=== PATIENT | male | born 1940 | race Caucasian/White ===

== ENCOUNTER 2016-11-24 18:20 | Emergency (ER) | payer OTHER, BC ==
[2016-11-24 18:26] VITALS: BP 151/102; PULSE 70; TEMP 98; BMI 29.9
[2016-11-24] MEDS ORDERED: ONDANSETRON 4 MG/2 ML VIAL IVPUSH ONE (18:51)
--- NOTE | 2016-11-24 19:02 | PDOC ---
Attending Attestation - Resident Resident Name: Manjit Leija - ED Attending Attestation I have performed the following: I have examined & evaluated the patient, The case was reviewed & discussed with the resident, I agree w/resident's findings & plan, Exceptions are as noted - HPI HPI: 11/24/16 18:56 76 yo M h/o Parkinson's disease Presenting to the ER with a complaint of nausea He had recent change in his medications Since then he has noted nausea He told his Neurologist who told him to adjust his medication regimen He adjusted his medications per Neurologist recommendation but is still waking up in the morning nauseous Headaches when he wakes up No fevers No vomiting Pt currently does not feel nauseous - Physicial Exam PE: 11/24/16 19:02 No abdominal tenderness to palation No involuntary guarding No rebound tenderness - Medical Decision Making 11/24/16 19:02 Nausea, likely related to medications Will r/o Cardiac pathology, biliary pathology, pancreatitis Will do labs will do EKG Will give Zofran if QTc is permitting 11/24/16 21:03 Laboratory Tests 11/24/16 11/24/16 19:00 19:00 WBC 7.9 Hgb 15.3 Hct 45.4 Plt Count 196 BUN 29 H Creatinine 1.4 H Creatine Kinase 669 H D CK-MB (CK-2) 6.438 H Troponin I < 0.02 Total Amylase 92 Lipase 210 Anticipate discharge 11/24/16 22:23 Laboratory Tests 11/24/16 19:00 Creatine Kinase Index 1.0 CK-MB (CK-2) 6.438 H Troponin I < 0.02 Pt states he feels better He would like medications to go home with I will not discharge on Reglan Can give short course of zofran (pt QTc is 500ms) pt asked to follow up with PMD and Neurologist for medication adjustment Clinical impression: nausea
[2016-11-24] MEDS ORDERED: ONDANSETRON 4 MG/2 ML VIAL ONE (19:05)
[2016-11-24 19:09] LABS: BASOPHIL 0.5 % (0-2.0); EOSINOPHIL 1.1 % (0-4.5); MCH 29.9 pg (25.7-33.7); MCHC 33.8 g/dl (32.0-35.9); MEAN CELL VOLUME 88.5 fl (80-96); MEAN PLT VOLUME 8.1 fl (7.5-11.1); NEUTROPHILS 73.7 % (42.8-82.8); PLATELET COUNT 196 K/MM3 (134-434); RDW 13.5 % (11.9-15.9); WHITE BLOOD COUNT 7.9 K/mm3 (4.0-10.0)
--- NOTE | 2016-11-24 19:16 | PDOC ---
History of Present Illness - General Chief Complaint: Nausea Stated Complaint: ALLERGIC REACTION Time Seen by Provider: 11/24/16 18:29 - History of Present Illness Initial Comments: 11/24/16 19:10 76 yo male with h/o HTN, HLD, anxiety, Parkinsons Dz. who presents with nausea. Pt reports nausea since starting new parkinson medication for the past week. Per Neurology instructions he has decreased dosage of medication and crushed medication as advised. Despite recommendations he continues to experience nausea predominately in the morning upon awakening. Nausea is transient and decreases throughout the day. In addition, he complains of morning WILD, SOB, dizziness, weakness, GI upset. Denies fevers/chills, urinary complaints, or falls. Request anti emetic. Past History - Past Medical History Allergies/Adverse Reactions: Allergies Allergy/AdvReac Type Severity Reaction Status Date / Time No Known Allergies Allergy Verified 11/24/16 18:24 Home Medications: Ambulatory Orders Amlodipine Besylate [Norvasc -] 10 mg PO DAILY 09/05/13 Atenolol [Tenormin -] 50 mg PO DAILY 09/05/13 Atorvastatin Ca [Lipitor] 40 mg PO HS 09/05/13 Hydrochlorothiazide [Hctz -] 25 mg PO DAILY 09/05/13 Lorazepam 0.5 mg PO DAILY PRN 09/05/13 Ramipril 100 mg PO BID 09/05/13 Sertraline HCl [Zoloft] 100 mg PO BID 01/21/14 Aspirin [ASA -] 81 mg PO HS 01/27/14 Entacapone 200 mg PO BID 11/24/16 Ondansetron HCl [Zofran] 4 mg PO DAILY PRN #5 tablet 11/24/16 Anemia: No Asthma: No Cancer: No Cardiac Disorders: Yes (PACEMAKER) Dementia: Yes (PARKINSONS) HTN: Yes Psychiatric Problems: Yes (anxiety) - Surgical History Abdominal Surgery: No Appendectomy: No - Family Disease History Family Disease History: CA: Mother, Other: Father (htn) - Psycho/Social/Smoking Cessation Hx Anxiety: No Suicidal Ideation: No Smoking History: Never smoked Have you smoked in the past 12 months: No Hx Alcohol Use: No Drug/Substance Use Hx: No Substance Use Type: None Hx Substance Use Treatment: No Review of Systems - Review of Systems Comments:: 11/24/16 19:18 GENERAL/CONSTITUTIONAL: No fever or chills. No weakness. HEAD, EYES, EARS, NOSE AND THROAT: No change in vision. No ear pain or discharge. No sore throat. CARDIOVASCULAR: No chest pain or shortness of breath RESPIRATORY: No cough, wheezing, or hemoptysis. GASTROINTESTINAL: + nausea. No vomiting, diarrhea or constipation. GENITOURINARY: No dysuria, frequency, or change in urination. MUSCULOSKELETAL: No joint or muscle swelling or pain. No neck or back pain. SKIN: No rash NEUROLOGIC: + Tremor. No headache, vertigo, loss of consciousness, or change in strength/sensation. ENDOCRINE: No increased thirst. No abnormal weight change HEMATOLOGIC/LYMPHATIC: No anemia, easy bleeding, or history of blood clots. ALLERGIC/IMMUNOLOGIC: No hives or skin allergy. *Physical Exam - Vital Signs Last Vital Signs Temp Pulse Resp BP Pulse Ox 98 F 70 18 151/102 96 11/24/16 18:24 11/24/16 18:24 11/24/16 18:24 11/24/16 18:24 11/24/16 18:24 - Physical Exam Comments: 11/24/16 19:18 GENERAL: Awake, alert, and fully oriented, in no acute distress HEAD: No signs of trauma, normocephalic, atraumatic EYES: PERRLA, EOMI, sclera anicteric, conjunctiva clear ENT: Auricles normal inspection, hearing grossly normal, nares patent, oropharynx clear without exudates. Moist mucosa NECK: Normal ROM, supple, no lymphadenopathy, JVD, or masses LUNGS: No distress, speaks full sentences, clear to auscultation bilaterally HEART: Regular rate and rhythm, normal S1 and S2, no murmurs, rubs or gallops, peripheral pulses normal and equal bilaterally. ABDOMEN: Soft, nontender, normoactive bowel sounds. No guarding, no rebound. No masses EXTREMITIES: Normal inspection, Normal range of motion, no edema. No clubbing or cyanosis. NEUROLOGICAL: + Tremor BL UE. Cranial nerves II through XII grossly intact. Normal speech, normal gait, no focal sensorimotor deficits SKIN: Warm, Dry, normal turgor, no rashes or lesions noted. ED Treatment Course - LABORATORY CBC & Chemistry Diagram: 11/24/16 19:00 11/24/16 19:00 - Medications Given in the ED: ED Medications Discontinued Medications Generic Name Dose Route Start Last Admin Trade Name Freq PRN Reason Stop Dose Admin Ondansetron HCl 4 mg 11/24/16 18:51 11/24/16 19:06 Zofran Injection IVPUSH 11/24/16 18:52 4 mg ONCE ONE Administration Medical Decision Making - Medical Decision Making 11/24/16 19:20 76 yo male with h/o HLD, HTN, Anxiety, and Parkinson's Dz. Reports nasuea for past week since recent medication change. Provided hand off to Dr. Mcdonald ED course : EKG UA, CBC, CMP CXR *DC/Admit/Observation/Transfer Diagnosis at time of Disposition: Nausea - Discharge Dispostion Disposition: HOME Condition at time of disposition: Improved - Prescriptions Prescriptions: Ondansetron HCl [Zofran] 4 mg PO DAILY PRN #5 tablet PRN Reason: Nausea - Referrals Referrals: Nilsa Resendiz MD [Primary Care Provider] - - Patient Instructions Printed Discharge Instructions: DI for Nausea -- Adult Additional Instructions: Please return to the ER if you experience worsening symptoms including vomiting , bloody vomit, or blood in stools. Please follow up with your neurologist regarding your medication management for Parkinson's. Please follow up with your primary care provider to discuss your ER visit. - Attestations Physician Attestion: 11/27/16 15:30 I, Dr. Manjit Leija, attest that this document has been prepared under my direction and personally reviewed by me in its entirety. I further attest, that it accurately reflects all work, treatment, procedures and medical decision -making performed by me.
--- NOTE | 2016-11-24 19:51 | PDOC ---
*Physical Exam - Vital Signs Last Vital Signs Temp Pulse Resp BP Pulse Ox 98 F 70 18 151/102 96 11/24/16 18:24 11/24/16 18:24 11/24/16 18:24 11/24/16 18:24 11/24/16 18:24 - Physical Exam Comments: 11/24/16 19:59 General Appearance: Nourished. No Apparent Distress HEENT: No Pharyngeal Erythema, Tonsillar Exudate, Tonsillar Erythema Respiratory/Chest: Lungs Clear, Normal Breath Sounds. No Crackles, Rales, Rhonchi, Wheezing Cardiovascular: Regular Rhythm, Regular Rate. No Murmur, Gallop/S3, Gallop/S4 Gastrointestinal/Abdominal: Normal Bowel Sounds, Soft. No Guarding, Rebound, Tenderness Extremity: Normal Capillary Refill Integumentary: Normal Color, Dry, Warm Neurologic: Fully Oriented, Alert, Normal Mood/Affect, Normal Response ED Treatment Course - LABORATORY CBC & Chemistry Diagram: 11/24/16 19:00 11/24/16 19:00 - ADDITIONAL ORDERS Additional order review: 11/24/16 19:00 RBC 5.13 MCV 88.5 MCHC 33.8 RDW 13.5 MPV 8.1 Neutrophils % 73.7 Lymphocytes % 14.8 Monocytes % 9.9 Eosinophils % 1.1 Basophils % 0.5 - Medications Given in the ED: ED Medications Discontinued Medications Generic Name Dose Route Start Last Admin Trade Name Sylvesterq PRN Reason Stop Dose Admin Ondansetron HCl 4 mg 11/24/16 18:51 11/24/16 19:06 Zofran Injection IVPUSH 11/24/16 18:52 4 mg ONCE ONE Administration Progress Note - Progress Note Progress Note: Received sign out from Dr. Leija. Patient is a 76 year old male with a history of Parkinson's and Anxiety who presents with nausea. Patient had recently changed his Parkinson's medication and has been having issues with nausea throughout the last week. Patient is currently working with his neurologist to manage his medication. Work up has been negative thus far and labs are still pending. If labs result as normal, then the patient can be discharged home with neurology follow up. Medical Decision Making - Medical Decision Making 11/24/16 20:18 EKG compared to previous EKG from 01/28/16 and is unchanged. 11/24/16 22:19 Patient's lab results are normal. We discussed the results with the patient and feel comfortable discharging home and the patient is agreeable to the plan. *DC/Admit/Observation/Transfer Diagnosis at time of Disposition: Nausea - Discharge Dispostion Disposition: HOME Condition at time of disposition: Improved - Prescriptions Prescriptions: Ondansetron HCl [Zofran] 4 mg PO DAILY PRN #5 tablet PRN Reason: Nausea - Referrals Referrals: Nilsa Resendiz MD [Primary Care Provider] - - Patient Instructions Printed Discharge Instructions: DI for Nausea -- Adult Additional Instructions: Please return to the ER if you experience worsening symptoms including vomiting , bloody vomit, or blood in stools. Please follow up with your neurologist regarding your medication management for Parkinson's. Please follow up with your primary care provider to discuss your ER visit. - Attestations Physician Attestion: 11/24/16 22:19 I, Dr. Dustin Mcdonald, attest that this document has been prepared under my direction and personally reviewed by me in its entirety. I further attest, that it accurately reflects all work, treatment, procedures and medical decision -making performed by me.
[2016-11-24 19:52] LABS: ALBUMIN 4.2 g/dl (3.4-5.0); AMYLASE 92 U/L (25-115); ANION GAP 6 (8-16); BILIRUBIN,TOTAL 0.9 mg/dL (0.2-1.0); CALCIUM 9.6 mg/dL (8.5-10.1); CO2 30 mmol/L (21-32); CREATININE 1.4 mg/dL (0.7-1.3); GLUCOSE,RANDOM 87 mg/dL (74-106); SGOT/AST 48 U/L (15-37); SGPT/ALT 32 U/L (12-78)
[2016-11-24 19:55] LABS: ALK PHOS 78 U/L (45-117); TROPONIN I < 0.02 ng/ml (0.00-0.05)
--- NOTE | 2016-11-27 12:46 | EKG ---
Test Reason : Blood Pressure : / mmHG Vent. Rate : 060 BPM Atrial Rate : 060 BPM P-R Int : 312 ms QRS Dur : 164 ms QT Int : 500 ms P-R-T Axes : 000 -77 -19 degrees QTc Int : 500 ms Atrial-paced rhythm with prolonged AV conduction RIGHT BUNDLE BRANCH BLOCK LEFT ANTERIOR FASCICULAR BLOCK BIFASCICULAR BLOCK SEPTAL INFARCT , AGE UNDETERMINED ABNORMAL ECG WHEN COMPARED WITH ECG OF 27-JAN-2014 18:29, VENT. RATE HAS DECREASED BY 48 BPM Confirmed by KAELYN BROWN MD ([id number]) on 11/27/2016 12:46:23 PM Referred By: Confirmed By:KAELYN BROWN MD
== END 2016-11-24 22:31 | disposition home or self-care (01) ==
LOC: JER 18:20
PROC: 3E033GC Introduction of Other Therapeutic Substance into Peripheral Vein, Percutaneous Approach (ICD-10-PCS; principal; 2016-11-24)
DX: R11.0 Nausea (principal); I10 Essential (primary) hypertension; E78.5 Hyperlipidemia, unspecified; F41.9 Anxiety disorder, unspecified; G20 Parkinson's disease; Z95.0 Presence of cardiac pacemaker
CPT/HCPCS: 36415; 80053; 82150; 82550; 82553; 83690; 84484; 85025; 93005; 93010; 96374; 99282-25

== ENCOUNTER 2016-12-18 13:05 | Emergency (ER) | payer OTHER, BC ==
[2016-12-18 13:12] VITALS: BP 141/78; PULSE 68; TEMP 97.7; BMI 29.2
--- NOTE | 2016-12-18 13:28 | PDOC ---
History of Present Illness - General Chief Complaint: Urinary Problem Stated Complaint: CONSTIPATED UNABLE TO VOID Time Seen by Provider: 12/18/16 13:27 - History of Present Illness Initial Comments: 12/18/16 13:29 Mr. Gómez is a 76 yo male with a significant past medical history of parkinson' s who presents to the emergency department with constipation on and off for two weeks. He says that his last BM was 2 days ago and that he has had to strain. This AM he was not able to defecate and is now unable to urinate as well. Denies any pain. The patient denies chest pain, shortness of breath, headache and dizziness. Denies fever, chills, nausea, vomit, and diarrhea. Denies dysuria, frequency, urgency and hematuria. Allergies: NKDA Past surgical history: Lithotripsy and laser surgery 2x for prostate enlargement Social history: Denies PMD - Ann[place] Past History - Past Medical History Allergies/Adverse Reactions: Allergies Allergy/AdvReac Type Severity Reaction Status Date / Time No Known Allergies Allergy Verified 12/18/16 13:13 Home Medications: Ambulatory Orders Amlodipine Besylate [Norvasc -] 10 mg PO DAILY 09/05/13 Atenolol [Tenormin -] 50 mg PO DAILY 09/05/13 Atorvastatin Ca [Lipitor] 40 mg PO HS 09/05/13 Hydrochlorothiazide [Hctz -] 25 mg PO DAILY 09/05/13 Lorazepam 0.5 mg PO DAILY PRN 09/05/13 Ramipril 100 mg PO BID 09/05/13 Sertraline HCl [Zoloft] 100 mg PO BID 01/21/14 Aspirin [ASA -] 81 mg PO HS 01/27/14 Ondansetron HCl [Zofran] 4 mg PO DAILY PRN #5 tablet 11/24/16 Carbidopa/Levodopa 25/100 [Sinemet 25/100 -] 1 each PO TID 12/18/16 Polyethylene Glycol 3350 [Miralax (For Daily Use) -] 17 gm PO DAILY #1 bottle Anemia: No Asthma: No Cancer: No Cardiac Disorders: Yes (PACEMAKER) Dementia: Yes (PARKINSONS) HTN: Yes Hypercholesterolemia: Yes Kidney Stones: Yes Psychiatric Problems: Yes (anxiety) Other medical history: PROSTATE - Surgical History Abdominal Surgery: No Appendectomy: No Cardiac Surgery: Yes (PACEMAKER) - Family Disease History Family Disease History: CA: Mother, Other: Father (htn) - Psycho/Social/Smoking Cessation Hx Anxiety: No Suicidal Ideation: No Smoking History: Never smoked Have you smoked in the past 12 months: No Information on smoking cessation initiated: No Hx Alcohol Use: No Drug/Substance Use Hx: No Substance Use Type: None Hx Substance Use Treatment: No Review of Systems - Review of Systems Comments:: 12/18/16 13:30 GENERAL/CONSTITUTIONAL: No fever or chills. No weakness. HEAD, EYES, EARS, NOSE AND THROAT: No change in vision. No ear pain or discharge. No sore throat. CARDIOVASCULAR: No chest pain or shortness of breath RESPIRATORY: No cough, wheezing, or hemoptysis. GASTROINTESTINAL: +Recent constipation. No nausea, vomiting, or diarrhea. GENITOURINARY: +As of this AM cannot urinate. Does not report feeling full or uncomfortable, however. No dysuria. MUSCULOSKELETAL: No joint or muscle swelling or pain. No neck or back pain. SKIN: No rash NEUROLOGIC: No headache, vertigo, loss of consciousness, or change in strength/ sensation. ENDOCRINE: No increased thirst. No abnormal weight change HEMATOLOGIC/LYMPHATIC: No anemia, easy bleeding, or history of blood clots. ALLERGIC/IMMUNOLOGIC: No hives or skin allergy. *Physical Exam - Vital Signs Last Vital Signs Temp Pulse Resp BP Pulse Ox 97.7 F 68 18 141/78 97 12/18/16 13:08 12/18/16 13:08 12/18/16 13:08 12/18/16 13:08 12/18/16 13:08 - Physical Exam Comments: 12/18/16 13:31 GENERAL: Awake, alert, and fully oriented, in no acute distress HEAD: No signs of trauma, normocephalic, atraumatic EYES: PERRLA, EOMI, sclera anicteric, conjunctiva clear ENT: Auricles normal inspection, hearing grossly normal, nares patent, oropharynx clear without exudates. Moist mucosa NECK: Normal ROM, supple, no lymphadenopathy, JVD, or masses LUNGS: No distress, speaks full sentences, clear to auscultation bilaterally HEART: Regular rate and rhythm, normal S1 and S2, no murmurs, rubs or gallops, peripheral pulses normal and equal bilaterally. ABDOMEN: Soft, nontender, normoactive bowel sounds. No guarding, no rebound. No masses EXTREMITIES: Normal inspection, Normal range of motion, no edema. No clubbing or cyanosis. NEUROLOGICAL: Cranial nerves II through XII grossly intact. Normal speech, normal gait, no focal sensorimotor deficits SKIN: Warm, Dry, normal turgor, no rashes or lesions noted. Medical Decision Making - Medical Decision Making 12/18/16 16:42 Mr. Gómez presented with inability to defecate for 2 days and urinate as of this morning. Fecal occult positive for blood, has never had a colonoscopy. Counseled to follow-up with PCP. KUB did not show any obstructions. Post mag- citrate and fleet enema he reports a large bowel movement and ability to urinate again. Will get post-void residual to confirm no problems with urinary tract. 12/18/16 18:26 Post-void residual US revealed suspicion for mass in bladder. CT ordered to confirm. 12/18/16 18:[address] read back. Will call to communicate results. 12/18/16 18:27 CT read salient points below. Patient called at [phone] to communicate results. Patient indicated understanding and need to follow-up with urologist and PCP ANA for further evaluation. "There appears to be a solid mass within the urinary bladder which measures approximately 4.1 x 3.6 x 4.2 cm. The mass is within the posterior aspect of the bladder. Follow-up contrast enhanced imaging, as previously recommended, would be appropriate. Cystoscopic correlation is also recommended. IMPRESSION: 1. Limited study with suspected urinary bladder mass. 2. Marked prostatic enlargement. No acute pathology within the abdomen or pelvis. Clinical correlation and repeat contrast-enhanced imaging recommended. Please see above discussion. " *DC/Admit/Observation/Transfer Diagnosis at time of Disposition: Constipation Qualifiers: Constipation type: other constipation type Qualified Code(s): K59.09 - Other constipation - Discharge Dispostion Disposition: HOME Condition at time of disposition: Stable - Prescriptions Prescriptions: Polyethylene Glycol 3350 [Miralax (For Daily Use) -] 17 gm PO DAILY #1 bottle - Referrals Referrals: Nilsa Resendiz MD [Primary Care Provider] - - Patient Instructions Printed Discharge Instructions: DI for Constipation Additional Instructions: Please return if any pain or other concerning symptoms. Follow-up with your primary care provider for constipation management. Also follow-up on CT results as able. - Attestations Physician Attestion: 12/18/16 18:29 I, Dr. Mario Pond, attest that this document has been prepared under my direction and personally reviewed by me in its entirety. I further attest, that it accurately reflects all work, treatment, procedures and medical decision -making performed by me.
[2016-12-18] MEDS ORDERED: MAGNESIUM CITRATE 300 ML BOTTLE PO ONE (14:15)
[2016-12-18] MEDS ORDERED: MAGNESIUM CITRATE 300 ML BOTTLE ONE (14:41)
--- NOTE | 2016-12-18 17:19 | PDOC ---
Attending Attestation - Medical Decision Making 12/18/16 17:22 Dr. Cox paged via phone answering service. Awaitng call back. <Ronit Chan - Last Filed: 12/18/16 17:22> - Resident Resident Name: Mario Pond - ED Attending Attestation I have performed the following: I have examined & evaluated the patient, The case was reviewed & discussed with the resident, I agree w/resident's findings & plan, Exceptions are as noted - HPI HPI: 12/18/16 17:14 76 yo M wtih h/o renal stones, here wtih c/o constipation and inability to urinate. hadn't had bowel movement in while, today while having bm urine stopped. has had h/o bph, had recent evaluation by DR Cox, last us bladder 6 mo ago. no hematuria, no n/v no f/c no flank pain. - Physicial Exam PE: 12/18/16 17:15 awake alert lungs clear bilat heart RRR no mrg. abd soft NT ND. no CVA tenderness. ext wwp. no edema. no calf tenderness. skin warm and dry. - Medical Decision Making 12/18/16 17:19 76 yo m with urinary retention, constipation. soft abd. plan post void bladder volume, enema, and reassess. 12/18/16 18:02 d/w Dr. Cox, who unsure of last bladder scan. will followup with ct renal and bladder, and dc home. will see pt this week. told to call and schedule.l 12/18/16 18:03 focused ED ultrasound bilateral kidneys right kidney no hydronephrosis left kidney irregular in shape, 2 large simple renal cyst, largest measuring 6 cm in diameter bladder with protruding mass at base, no color flow on doppler, appears to be contiguous with the prostate. post void bladder volume 90 ml. impression: no urinary retention post void 90 ml, bladder mass. recommend urology and ct followup. <Sahara [place] - Last Filed: 12/18/16 18:05>
[2016-12-18] MEDS ORDERED: ACETAMINOPHEN 325 MG TABLET (FP) PO ONE (17:56)
[2016-12-18] MEDS ORDERED: ACETAMINOPHEN 325 MG TABLET (FP) ONE (18:08)
== END 2016-12-18 19:18 | disposition home or self-care (01) ==
LOC: JER 13:05
DX: K59.09 Other constipation (principal); I10 Essential (primary) hypertension; E78.00 Pure hypercholesterolemia, unspecified; G20 Parkinson's disease; F41.9 Anxiety disorder, unspecified; Z79.82 Long term (current) use of aspirin; Z95.0 Presence of cardiac pacemaker; Z87.442 Personal history of urinary calculi
CPT/HCPCS: 74000-TC; 74176-TC; 82272; 99282-25

== ENCOUNTER 2017-01-04 18:57 | Emergency (ER) | payer OTHER, BC ==
[2017-01-04 19:26] VITALS: BP 156/89; PULSE 64; TEMP 98.1; BMI 28.5
--- NOTE | 2017-01-04 19:30 | PDOC ---
History of Present Illness - General Chief Complaint: Hematuria Stated Complaint: URINARY PAIN Time Seen by Provider: 01/04/17 19:28 - History of Present Illness Initial Comments: 76 year old male with PMH of HTN, HLD, anxiety, Parkinson's, cardiac conduction abnormality (s/p pacemaker placement), and BPH presenting with uncomfortable urethral sensation, circum-anderson leakage, and urge for defecation 5 hours s/p partial TURP and bladder mass biopsy. He went for his partial TURP and bladder mass biopsy at approximately 12:00 PM and it was without incident. Afterward he stated he had this urge to defecate constantly and felt very anxious about the catheter because there was leakage around it. The drainage has become more clear since the procedure (draining approximately 500 mls of bloody urine since returning). He also admits to some nausea. The urologist is Dr. Cox. Denies vomiting, diarrhea, constipation, fevers, chills, pain, or other sick symptoms. 01/04/17 19:49 Past History - Past Medical History Allergies/Adverse Reactions: Allergies Allergy/AdvReac Type Severity Reaction Status Date / Time No Known Allergies Allergy Verified 01/04/17 10:52 Home Medications: Ambulatory Orders Amlodipine Besylate [Norvasc -] 10 mg PO DAILY 09/05/13 Atenolol [Tenormin -] 50 mg PO DAILY 09/05/13 Atorvastatin Ca [Lipitor] 40 mg PO HS 09/05/13 Hydrochlorothiazide [Hctz -] 25 mg PO DAILY 09/05/13 Lorazepam 0.5 mg PO DAILY PRN 09/05/13 Ramipril 100 mg PO BID 09/05/13 Sertraline HCl [Zoloft] 100 mg PO BID 01/21/14 Aspirin [ASA -] 81 mg PO HS 01/27/14 Ondansetron HCl [Zofran] 4 mg PO DAILY PRN #5 tablet 11/24/16 Carbidopa/Levodopa 25/100 [Sinemet 25/100 -] 1 each PO TID 12/18/16 Polyethylene Glycol 3350 [Miralax (For Daily Use) -] 17 gm PO DAILY #1 bottle Ubidecarenone [Co Q-10] 150 mg PO TID 01/02/17 Anemia: No Asthma: No Cancer: No Cardiac Disorders: Yes (PACEMAKER) CVA: No COPD: No CHF: No Dementia: No (PARKINSONS) Diabetes: No GI Disorders: No Disorders: No HTN: Yes Hypercholesterolemia: Yes Kidney Stones: Yes Liver Disease: No Psychiatric Problems: Yes (anxiety) Seizures: No Thyroid Disease: No - Surgical History Abdominal Surgery: No Appendectomy: No Cardiac Surgery: Yes (PACEMAKER) Cholecystectomy: No Lung Surgery: No Neurologic Surgery: No Orthopedic Surgery: No - Family Disease History Family Disease History: CA: Mother, Other: Father (htn) - Psycho/Social/Smoking Cessation Hx Anxiety: No Suicidal Ideation: No Smoking History: Unknown if ever smoked Have you smoked in the past 12 months: No Hx Alcohol Use: No Drug/Substance Use Hx: No Substance Use Type: None Hx Substance Use Treatment: No Review of Systems - Review of Systems Constitutional: No: Chills, Diaphoresis, Fever HEENTM: No: Blurred Vision Respiratory: No: Cough, Shortness of Breath Cardiac (ROS): No: Chest Pain ABD/GI: Yes: Nausea. No: Constipated, Diarrhea, Vomiting : Yes: Hematuria. No: Burning, Flank Pain Musculoskeletal: No: Back Pain Integumentary: No: Bruising, Change in Color Neurological: No: Headache *Physical Exam - Vital Signs Last Vital Signs Temp Pulse Resp BP Pulse Ox 98.1 F 64 20 156/89 99 01/04/17 19:05 01/04/17 19:05 01/04/17 19:05 01/04/17 19:05 01/04/17 19:05 - Physical Exam General Appearance: Yes: Nourished, Appropriately Dressed. No: Apparent Distress HEENT: positive: EOMI, SANJU, Normal Voice Neck: positive: Trachea midline, Normal Thyroid, Supple. negative: Tender, Rigid Respiratory/Chest: positive: Lungs Clear, Normal Breath Sounds. negative: Chest Tender, Respiratory Distress Cardiovascular: positive: Regular Rhythm, Regular Rate, Murmur, Other ( Pacemaker in place) Gastrointestinal/Abdominal: positive: Flat, Soft. negative: Tender, Organomegaly Male Genitalia: positive: normal genitalia, other (Anderson in place draining red tinged urine but not frankly bloody. Significant amont of leakage around cather site.) Integumentary: positive: Normal Color, Dry, Warm Neurologic: positive: Fully Oriented, Alert, Other (Baseline tremor consistent withhis history of Parkinson's). negative: Normal Mood/Affect (Seems slightly more anxious than he shoudl be. ) Procedures - Additional Procedures Additional Procedures: lavage - initial (Bladder lavage with 500 CC of NS with drainage becoming increasingly more clear. No difficulty with drainage but fluid was leaking around cather tip.) ED Treatment Course - LABORATORY CBC & Chemistry Diagram: 01/04/17 21:26 Medical Decision Making - Medical Decision Making 76 year old male s/p recent partial TURP and bladder mass biopsy presenting with leakage around his Anderson site and feeling of defecation urgency. Patient is otherwise stable and healthy. Given 0.5 MG lorazepam for anxiety and CBC drawn to determine if there was significant H&H drop. 01/04/17 21:08 CBC pending. Patient much better after receiving 0.5 of lorazepam. <50 cc of urine in bladder per Dr. Leija after bladder scan. Urine still clearing per procedure note. Results communicated with Dr. Cox @ 21:46. 01/04/17 21:45 HgB 15.5 compared to 15.3 one month prior. Patient will go home with follow up and return precautions. We changed the Anderson drainage bag and place a diaper. 01/04/17 21:52 *DC/Admit/Observation/Transfer Diagnosis at time of Disposition: Anderson catheter problem - Discharge Dispostion Disposition: HOME Condition at time of disposition: Improved Admit: No - Referrals Referrals: Baljit Cox MD [Primary Care Provider] - - Patient Instructions Additional Instructions: You were seen because you were having leakage around your Anderson catheter and some urge to have a bowel movement. We washed out your Anderson catheter and there seemed to be very little blood left. We spoke to your urologist and we recommend wearing a diaper for the leakage around the catheter. If it becomes too bothersome then you can follow up with him tomorrow. Please return to the ED if your drainage from the Anderson becomes more bloody or you get swelling of your penis, fevers, chills, worsening nausea, vomiting, or other sick symptoms. - Attestations Physician Attestion: Attested by Dr. Kannan Georges. 01/04/17 21:51
--- NOTE | 2017-01-04 20:00 | PDOC ---
Attending Attestation - Resident Resident Name: Rusty Georges - ED Attending Attestation I have performed the following: I have examined & evaluated the patient, The case was reviewed & discussed with the resident, I agree w/resident's findings & plan, Exceptions are as noted - HPI HPI: 01/04/17 20:03 Patient status post urological procedure, presents with Zarate catheter. Patient just concerned as procodures done earlier today. - Physicial Exam PE: 01/04/17 20:02 physical exam physical exam*Physical Exam General Appearance: Yes: Appropriately Dressed. No: Apparent Distress, Intoxicated HEENT: positive: EOMI, SANJU, Normal ENT Inspection, Normal Voice, TMs Normal, Pharynx Normal. negative: Pale Conjunctivae, Photophobia, Scleral Icterus (R), Scleral Icterus (L) Neck: positive: Trachea midline, Normal Thyroid, Supple. negative: Tender, Rigid, Carotid bruit, Stridor, Lymphadenopathy (R), Lymphadenopathy (L), Thyromegaly Respiratory/Chest: positive: Lungs Clear, Normal Breath Sounds. negative: Chest Tender, Respiratory Distress, Accessory Muscle Use, Labored Respiration, RES, Crackles, Rales, Rhonchi, Stridor, Wheezing, Dullness Cardiovascular: positive: Regular Rhythm, Regular Rate, S1, S2. negative: Edema , JVD, Murmur, Bradycardia, Tachycardia Vascular Pulses: Dorsalis-Pedis (R): 2+, Doralis-Pedis (L): 2+ Gastrointestinal/Abdominal: positive: Normal Bowel Sounds, Flat, Soft. negative : Tender, Organomegaly, Pulsatile Mass, Increased Bowel Sounds, Decreased BS, Distended, Guarding, Rebound, Hernia, Hepatomegaly, Spleenomegaly Lymphatic: negative: Adenopathy, Tenderness Musculoskeletal: positive: Normal Inspection. negative: CVA Tenderness, Decreased Range of Motion Extremity: positive: Normal Capillary Refill, Normal Inspection, Normal Range of Motion, Pelvis Stable. negative: Tender, Pedal Edema, Swelling, Erythema Integumentary: positive: Normal Color, Dry, Warm. negative: Cyanotic, Erythema , Jaundice, Rash Neurologic: positive: plate cleaner II-XII NML intact, Fully Oriented, Alert, Normal Mood/ Affect, Motor Strength 5/5. negative: EOM Palsy, Facial Droop, Sensory Deficit . Zarate catheter in place.hematuria in leg bag
[2017-01-04] MEDS ORDERED: LORazepam 0.5 MG TABLET PO ONE (20:01)
[2017-01-04] MEDS ORDERED: LORazepam 0.5 MG TABLET ONE (20:08)
[2017-01-04 21:47] LABS: BASOPHIL 0.3 % (0-2.0); EOSINOPHIL 0.5 % (0-4.5); MCH 30.1 pg (25.7-33.7); MCHC 33.6 g/dl (32.0-35.9); MEAN CELL VOLUME 89.4 fl (80-96); MEAN PLT VOLUME 7.7 fl (7.5-11.1); NEUTROPHILS 85.6 % (42.8-82.8); PLATELET COUNT 200 K/MM3 (134-434); WHITE BLOOD COUNT 13.7 K/mm3 (4.0-10.0)
== END 2017-01-04 22:13 | disposition home or self-care (01) ==
LOC: JER 18:57
DX: Z46.6 Encounter for fitting and adjustment of urinary device (principal); E78.00 Pure hypercholesterolemia, unspecified; F41.9 Anxiety disorder, unspecified; Z95.0 Presence of cardiac pacemaker; Z87.442 Personal history of urinary calculi
CPT/HCPCS: 36415; 85025; 99282-25

== ENCOUNTER → 2017-01-04 | Day surgery (SDC) | payer OTHER, BC ==
[2017-01-02 10:56] VITALS: BMI 28.5
[~2017-01-04] MED LIST: ELECTROLYTE-148 SOLN 1,000 ML IV SCH; FUROSEMIDE 40 MG/4 ML INJECTABLE VIAL ONE; LIDOCAINE HCL 2% JELLY 10 ML CARTRIDGE ONE; MIDAZOLAM HCL 2 MG/2 ML SINGLE DOSE VIAL ONE; ONDANSETRON 4 MG/2 ML VIAL IVPUSH PRN; PROMETHAZINE HCL 25 MG/1 ML VIAL IVPUSH PRN; PROPOFOL 20 ML ONE; ceFAZolin SODIUM 1 GM VIAL IVPB ONE; ceFAZolin SODIUM 1 GM VIAL ONE; oxyCODONE HCL 5 MG TABLET PO PRN
--- NOTE | 2017-01-04 13:14 | OP ---
Operative Note - Note: Operative Date: 01/04/17 Pre-Operative Diagnosis: bladder mass Operation: partial TURP Findings: median lobe of prostate Post-Operative Diagnosis: Other (prostate growing into bladder) Surgeon: Baljit Cox Anesthesiologist/DEVELOPER RELATIONS MANAGER: Baljit Dalal Anesthesia: Spinal Specimens Removed: prostate chips Estimated Blood Loss (mls): 10 Operative Report Dictated: Yes
--- NOTE | 2017-01-04 13:59 | OP ---
DATE OF OPERATION: 01/04/2017 PREOPERATIVE DIAGNOSIS: Bladder mass. POSTOPERATIVE DIAGNOSIS: Median bar of the prostate growing into the bladder. PROCEDURE: Cystoscopy, partial transurethral resection of the prostate. SURGEON: Venecia Stinson MD INDICATION: Patient is a 76-year-old male with gross hematuria and very large prostate. On CT scan noted to have a possible bladder mass. Cystoscopy revealed evidence of could not distinguish bladder mass from median lobe of prostate, so he was taken to the OR for transurethral resection of the mass. DESCRIPTION OF PROCEDURE: Patient was taken to the OR and placed supine on the operating table. After cardiac monitoring administered, a spinal anesthetic was then given. He was prepped and draped in the dorsal lithotomy position. He was given 2 g of Ancef. The meatus needed to be dilated in order to accommodate the resectoscope which was inserted into the urethra and then into the bladder. 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 No other masses were noted in the bladder. The median lobe was then partially resected using the bipolar loop, and all bleeding sites were fulgurated. Tissue was then removed and sent to Pathology for analysis. A 22-English Zarate was then placed to straight drainage. [place]-tinged urine retrieved. Patient was awoken from anesthesia and transferred to recovery room in stable condition. There were no complications. Estimated blood loss was minimal. VENECIA STINSON M.D. [id number]
[2017-01-04 15:24] VITALS: TEMP 97.6
[2017-01-04 16:40] VITALS: BP 116/69; PULSE 64
--- NOTE | 2017-01-05 12:50 | PATH ---
Surgical Pathology Report Patient Name: SOREN HEAD [facility]. Rec. #: [id number] /Age/Gender: 1940 (Age: 76) / M Account: [id number] Location: [facility] SURGICAL Taken: 01/04/2017 Received: 01/04/2017 Reported: 01/05/2017 Physicians: Baljit Cox M.D. 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 Electronically Signed Maurisio Barrientos M.D. Gross Description Received in formalin labelled "prostate tissue" is a 2 gram, 3 x 3 x 1 cm aggregate of pink and arndt rubbery tissue fragments. No yellow or indurated areas are identified. Totally submitted in 3 cassettes [facility]/01/04/2017 [facility]/01/04/2017
== END | disposition home or self-care (01) ==
LOC: JASU-SURG 10:16
PROVIDERS: ATTEND Urology
PROC: 0VB08ZX Excision of Prostate, Via Natural or Artificial Opening Endoscopic, Diagnostic (ICD-10-PCS; principal; 2017-01-04 12:00)
DX: N32.89 Other specified disorders of bladder (principal); N40.1 Benign prostatic hyperplasia with lower urinary tract symptoms; R31.0 Gross hematuria
CPT/HCPCS: 88305-TC; 94760

== ENCOUNTER 2017-05-14 11:30 | Observation (INO) | payer OTHER, BC ==
--- NOTE | 2017-05-14 13:09 | PDOC ---
History of Present Illness - General History Source: Patient Exam Limitations: No Limitations - History of Present Illness Initial Comments: 05/14/17 13:11 The patient is a 77 year old male with a significant PMH of hypertension, hyperlipidemia, anxiety, Parkinsons, cardiac conduction abnormality s/p pacemaker placement, and benign prostatic hyperplasia who presents to the emergency department with lower abdominal pain, chills and cough for the past two day. The patient states he had chills and cough two nights ago followed by intermittent lower abdominal pain. The patient reports no alleviating or exacerbating factors. The patient notes he was here two months ago for similar symptoms and told he was constipated. His last bowel movement was two days ago and states he normally goes more frequently. The patient denies chest pain, shortness of breath, headache and dizziness. Denies fever, chills, nausea, vomit, and diarrhea. Denies dysuria, frequency, urgency and hematuria. Allergies: NKA Past surgical history: lithotripsy and laser surgery x2 for prostate enlargement Social history: No reported alcohol, cigarette or drug use. PCP: Dr. Resendiz <Katey Benoit - Last Filed: 05/14/17 16:41> <Pastor Curran - Last Filed: 05/14/17 16:49> - General Chief Complaint: Pain Stated Complaint: ABD PAIN Time Seen by Provider: 05/14/17 12:03 Past History <Katey Benoit - Last Filed: 05/14/17 16:41> - Past Medical History Anemia: No Asthma: No Cancer: No Cardiac Disorders: Yes (PACEMAKER) CVA: No COPD: No CHF: No Dementia: No (PARKINSONS) Diabetes: No GI Disorders: No Disorders: No HTN: Yes Hypercholesterolemia: Yes Kidney Stones: Yes Liver Disease: No Psychiatric Problems: Yes (anxiety) Seizures: No Thyroid Disease: No - Surgical History Abdominal Surgery: No Appendectomy: No Cardiac Surgery: Yes (PACEMAKER) Cholecystectomy: No Lung Surgery: No Neurologic Surgery: No Orthopedic Surgery: No - Family Disease History Family Disease History: CA: Mother, Other: Father (htn) - Suicide/Smoking/Psychosocial Hx Smoking History: Never smoked Have you smoked in the past 12 months: No Hx Alcohol Use: No Drug/Substance Use Hx: No Substance Use Type: None Hx Substance Use Treatment: No <Pastor Curran - Last Filed: 05/14/17 16:49> - Past Medical History Allergies/Adverse Reactions: Allergies Allergy/AdvReac Type Severity Reaction Status Date / Time No Known Allergies Allergy Verified 05/14/17 12:11 Home Medications: Ambulatory Orders Amlodipine Besylate [Norvasc -] 10 mg PO DAILY 09/05/13 Atenolol [Tenormin -] 50 mg PO DAILY 09/05/13 Atorvastatin Ca [Lipitor] 40 mg PO HS 09/05/13 Hydrochlorothiazide [Hctz -] 25 mg PO DAILY 09/05/13 Lorazepam 0.5 mg PO DAILY PRN 09/05/13 Ramipril 50 mg PO BID 09/05/13 Sertraline HCl [Zoloft] 100 mg PO BID 01/21/14 Aspirin [ASA -] 81 mg PO HS 01/27/14 Ondansetron HCl [Zofran] 4 mg PO DAILY PRN #5 tablet 11/24/16 Carbidopa/Levodopa 25/100 [Sinemet 25/100 -] 1 each PO TID 12/18/16 Polyethylene Glycol 3350 [Miralax (For Daily Use) -] 17 gm PO DAILY #1 bottle Ubidecarenone [Co Q-10] 150 mg PO TID 01/02/17 Review of Systems - Review of Systems Able to Perform ROS?: Yes Comments:: 05/14/17 13:13 ROS: A complete review of 10 out of 10 review of systems is taken and is negative apart from what is previously mentioned below and in the HPI. <Katey Benoit - Last Filed: 05/14/17 16:41> *Physical Exam - Vital Signs Last Vital Signs Temp Pulse Resp BP Pulse Ox 99 F 63 18 103/54 97 05/14/17 11:30 05/14/17 11:30 05/14/17 11:30 05/14/17 11:30 05/14/17 11:30 - Physical Exam Comments: 05/14/17 13:13 Vitals: Triage vital signs reviewed General Appearance: No acute distress, well nourished, well developed Head: Atraumatic Eyes: Pupils equal reactive round, extraocular movement intact Ears: TM's normal bilaterally Nose: Nares patent bilaterally; no nasal congestion Throat: Posterior oropharynx without erythema, mucous membranes moist Neck: Supple; No nuchal rigidity Chest Wall: Nontender Cardiac: Regular rate and rhythm, no murmurs, no rubs, no gallops Lungs: Clear to auscultation bilateral, good air movement bilaterally Abdomen: (+) Lower abdominal tenderness to palpation. Soft, nondistended, normal bowel sounds. Genitourinary: Rectal: Exam deferred Extremities: Full range of motion to all extremities, no cyanosis, clubbing, or edema Skin: Warm and dry, no rashes or lesions, no rash, no petechiae Neuro: AOX3; Cranial Nerves 2-12 grossly intact, Strength intact to all extremities, Sensation intact to all extremities. Psych: Normal mood, normal affect <Katey Benoit - Last Filed: 05/14/17 16:41> - Vital Signs Last Vital Signs Temp Pulse Resp BP Pulse Ox 99 F 63 18 103/54 97 05/14/17 11:30 05/14/17 11:30 05/14/17 11:30 05/14/17 11:30 05/14/17 11:30 <Pastor Curran - Last Filed: 05/14/17 16:49> ED Treatment Course - LABORATORY CBC & Chemistry Diagram: 05/14/17 13:05 05/14/17 13:05 <Katey Benoit - Last Filed: 05/14/17 16:41> - LABORATORY CBC & Chemistry Diagram: 05/14/17 13:05 05/14/17 13:05 - RADIOLOGY Radiology Studies Ordered: Category Date Time Status CHEST X-RAY PORTABLE* [RAD] Stat Radiology 05/14/17 12:11 Ordered <Pastor Curran - Last Filed: 05/14/17 16:49> Medical Decision Making - Medical Decision Making 05/14/17 13:40 The patient is a 77 year old male with a significant PMH of hypertension, hyperlipidemia, anxiety, Parkinsons, cardiac conduction abnormality s/p pacemaker placement, and benign prostatic hyperplasia who presents to the emergency department with lower abdominal pain, chills and cough that began two days ago. Imaging: Chest XR Reported by: Dr. Moura Reviewed by: Dr. Curran Impression: No acute pathology. Improvement since prior study. Clearing of atelectasis left base. Imaging: CT Abdomen & Pelvis w/o contrast Reported by: Dr. Foster Reviewed by: Dr. Curran Impression: No definite findings of acute pathology are identified. There has been no obvious interval change in comparison to a prior CT exam of 12/22/2016. Soft tissue density is noted within the urinary bladder posteriorly suggestive of neoplastic disease. Accurate comparison with the previous study in regards to lesion size is difficult due to varying urinary bladder distension between the exams No obvious metastatic neoplastic disease is identified. Prostate enlargement which is at least moderate. Cholelithiasis. Mild to moderate left renal cortical atrophy. Multiple bilateral renal cortical cysts. <Katey Benoit - Last Filed: 05/14/17 16:41> - Medical Decision Making History and examination consistent with influenza. Patient influenza positive However given nausea decreased appetite and slight hypotension will observe overnight for IV fluids and further management. <Pastor Curran - Last Filed: 05/14/17 16:49> *DC/Admit/Observation/Transfer - Attestations Scribe Attestion: 05/14/17 13:14 Documentation prepared by Katey Benoit, acting as medical leader for Pastor Curran MD. <Katey Benoit - Last Filed: 05/14/17 16:41> - Discharge Dispostion Admit: Yes <Pastor Curran - Last Filed: 05/14/17 16:49> Diagnosis at time of Disposition: Influenza
[2017-05-14] MEDS ORDERED: ACETAMINOPHEN 500 MG TABLET (FP) PO ONE (13:24)
[2017-05-14 13:28] LABS: BASO % 0.4 % (0-2.0); EOS % 0.5 % (0-4.5); HEMATOCRIT 43.3 % (35.4-49); HEMOGLOBIN 14.2 GM/dL (11.7-16.9); LYMPH % 5.1 % (8-40); MCH 29.4 pg (25.7-33.7); MCHC 32.9 g/dl (32.0-35.9); MEAN CELL VOLUME 89.3 fl (80-96); MEAN PLT VOLUME 7.8 fl (7.5-11.1); MONO % 9.1 % (3.8-10.2); NEUT % 84.9 % (42.8-82.8); PLATELET COUNT 165 K/MM3 (134-434); RBC 4.85 M/mm3 (4.00-5.60); WHITE BLOOD COUNT 9.7 K/mm3 (4.0-10.0)
[2017-05-14] MEDS ORDERED: ACETAMINOPHEN 325 MG TABLET (FP) ONE (13:29)
[2017-05-14 13:40] LABS: INR 1.12 (0.82-1.09); PROTHROMBIN TIME (PATIENT) 12.6 SEC (9.98-11.88)
[2017-05-14 13:42] LABS: ACTIVATED PTT 30.5 SECONDS (26.9-34.4)
[2017-05-14 13:58] LABS: ALBUMIN 3.7 g/dl (3.4-5.0); ALK PHOS 71 U/L (45-117); ANION GAP 10 (8-16); BLOOD UREA NITROGEN 20 mg/dL (7-18); CALCIUM 8.5 mg/dL (8.5-10.1); CHLORIDE 97 mmol/L (98-107); CO2 31 mmol/L (21-32); CREATININE 1.4 mg/dL (0.7-1.3); GLUCOSE,RANDOM 100 mg/dL (74-106); LIPASE 150 U/L (73-393); POTASSIUM 3.4 mmol/L (3.5-5.1); SGOT/AST 23 U/L (15-37); SGPT/ALT 9 U/L (12-78); SODIUM 138 mmol/L (136-145); TOT PROT 6.3 g/dl (6.4-8.2)
[2017-05-14] MEDS ORDERED: ONDANSETRON *ODT* 4 MG TABLET SL ONE (16:15)
[2017-05-14] MEDS ORDERED: MAG HYDROX/AL HYDROX/SIMETH 30 ML UNIT-DOSE CUP PO ONE (16:15)
[2017-05-14] MEDS ORDERED: SODIUM CHLORIDE 0.9% 1000 ML INFUS.BAG IV ONE (16:18)
[2017-05-14] MEDS ORDERED: MAG HYDROX/AL HYDROX/SIMETH 30 ML UNIT-DOSE CUP ONE (16:24)
[2017-05-14] MEDS ORDERED: ONDANSETRON *ODT* 4 MG TABLET ONE (16:24)
[2017-05-14 16:25] LABS: URINE APPEARANCE CLEAR; URINE BILIRUBIN NEGATIVE (NEGATIVE); URINE BLOOD NEGATIVE (NEGATIVE); URINE COLOR DKYELLOW; URINE GLUCOSE (UA) NEGATIVE (NEGATIVE); URINE KETONE TRACE (NEGATIVE); URINE LEUK ESTERASE NEGATIVE (NEGATIVE); URINE NITRITE NEGATIVE (NEGATIVE); URINE UROBILINOGEN NEGATIVE mg/dL (0.2-1.0)
[2017-05-14 16:40] LABS: URINE PROTEIN 2+ (NEGATIVE)
[2017-05-14 16:43] LABS: EPI CELLS RARE /HPF (FEW); URINE HYALINE CAST 1 /lpf; URINE MUCUS RARE
[2017-05-14] MEDS ORDERED: D5-1/2NS+20 MEQ KCL - 20 MEQ/1,000 ML INFUS.BAG IV SCH (16:45)
[2017-05-14] MEDS ORDERED: ACETAMINOPHEN 325 MG TABLET (FP) PO PRN (16:45)
--- NOTE | 2017-05-14 18:15 | CON.GI ---
Consult Consult Specialty:: Gastroenterology Referred by:: Dr Resendiz Reason for Consultation:: Abdominal pain - History of Present Illness Chief Complaint: Crampy abdominal pain and diarrhea History of Present Illness: 77M presents to the ER with multiple constitutional symptoms and is found to have the flu. He is usually constipated and has chronic abdominal pain that he attributes to his Levodopa/carbidopa. He takes Miralax chronically. He developed diarrhea while in the ER. He has nausea, dyspepsia, anorexia, gaseous bloating and colicky periumbilical pain for the past 48 hours along with coryza , dry cough, muscle aches and chills. He did have a flu vaccination. He denies any diagnosed GI problems and has never had a EGD or a colonoscopy. No recent antibiotics or foreign travel. - History Source History Provided By: Patient Limitations to Obtaining History: No Limitations - Past Medical History STABLE CLEANER: Yes: Parkinson's Cardio/Vascular: Yes: HTN, Hyperlipdemia, Other (PPM for complete heart block leading to syncope in 2013) Gastrointestinal: Yes: Constipation Hepatobiliary: Yes: Cholelithiasis, Other (liver cyst) Renal/: Yes: BPH (requiring TURP 01/04/17), Renal Calculi (requiring ESWL), Other (had bladder tumor excised by Dr Cox) Psych: Yes: Anxiety Dermatology: Yes: Basal Cell (excised from left shoulder) - Past Surgical History Past Surgical History: Yes: Permanent Pacemaker, TURP Additional Surgical History: Left shoulder basal cell ca excision. 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 Place of : [facility] History of Recent Travel: No Home Medications - Allergies Allergies/Adverse Reactions: Allergies Allergy/AdvReac Type Severity Reaction Status Date / Time No Known Allergies Allergy Verified 05/14/17 12:11 - Home Medications Home Medications: Ambulatory Orders Amlodipine Besylate [Norvasc -] 10 mg PO DAILY 09/05/13 Atenolol [Tenormin -] 50 mg PO DAILY 09/05/13 Atorvastatin Ca [Lipitor] 40 mg PO HS 09/05/13 Hydrochlorothiazide [Hctz -] 25 mg PO DAILY 09/05/13 Lorazepam 0.5 mg PO DAILY PRN 09/05/13 Ramipril 50 mg PO BID 09/05/13 Sertraline HCl [Zoloft] 100 mg PO BID 01/21/14 Aspirin [ASA -] 81 mg PO HS 01/27/14 Ondansetron HCl [Zofran] 4 mg PO DAILY PRN #5 tablet 11/24/16 Carbidopa/Levodopa 25/100 [Sinemet 25/100 -] 1 each PO TID 12/18/16 Polyethylene Glycol 3350 [Miralax (For Daily Use) -] 17 gm PO DAILY #1 bottle Ubidecarenone [Co Q-10] 150 mg PO TID 01/02/17 Family Disease History - Family Disease History Family Disease History: CA: Mother ( 71 esophageal cancer), Other: Father ( 90 OMS) Review of Systems - Review of Systems Constitutional: reports: Chills, Fever, Loss of Appetite, Malaise, Night Sweats , Weakness Eyes: reports: No Symptoms HENT: reports: Nasal Congestion, Throat Pain Neck: reports: No Symptoms Cardiovascular: reports: No Symptoms Respiratory: reports: Cough Gastrointestinal: reports: Abdominal Pain, Bloating, Constipation, Diarrhea, Nausea Genitourinary: reports: No Symptoms Musculoskeletal: reports: No Symptoms Neurological: reports: No Symptoms Physical Exam-GI Vital Signs: Vital Signs Temperature 101.3 F H 05/14/17 13:32 Pulse Rate 64 05/14/17 16:05 Respiratory Rate 20 05/14/17 16:05 Blood Pressure 97/60 05/14/17 16:05 O2 Sat by Pulse Oximetry (%) 96 05/14/17 16:05 CBC,CMP WBC 9.7 K/mm3 (4.0-10.0) 05/14/17 13:05 RBC 4.85 M/mm3 (4.00-5.60) 05/14/17 13:05 Hgb 14.2 GM/dL (11.7-16.9) 05/14/17 13:05 Hct 43.3 % (35.4-49) 05/14/17 13:05 MCV 89.3 fl (80-96) 05/14/17 13:05 MCH 29.4 pg (25.7-33.7) 05/14/17 13:05 MCHC 32.9 g/dl (32.0-35.9) 05/14/17 13:05 RDW 13.0 % (11.9-15.9) 05/14/17 13:05 Plt Count 165 K/MM3 (134-434) 05/14/17 13:05 MPV 7.8 fl (7.5-11.1) 05/14/17 13:05 Neutrophils % 84.9 % (42.8-82.8) H 05/14/17 13:05 Lymphocytes % 5.1 % (8-40) L D 05/14/17 13:05 Monocytes % 9.1 % (3.8-10.2) 05/14/17 13:05 Eosinophils % 0.5 % (0-4.5) 05/14/17 13:05 Basophils % 0.4 % (0-2.0) 05/14/17 13:05 Sodium 138 mmol/L (136-145) 05/14/17 13:05 Potassium 3.4 mmol/L (3.5-5.1) L 05/14/17 13:05 Chloride 97 mmol/L (98-107) L 05/14/17 13:05 Carbon Dioxide 31 mmol/L (21-32) 05/14/17 13:05 Anion Gap 10 (8-16) 05/14/17 13:05 BUN 20 mg/dL (7-18) H 05/14/17 13:05 Creatinine 1.4 mg/dL (0.7-1.3) H 05/14/17 13:05 Creat Clearance w eGFR 49.41 (>60) 05/14/17 13:05 Random Glucose 100 mg/dL (74-106) 05/14/17 13:05 Lactic Acid 1.3 mmol/L (0.4-2.0) 05/14/17 13:05 Calcium 8.5 mg/dL (8.5-10.1) 05/14/17 13:05 Total Bilirubin 1.0 mg/dL (0.2-1.0) 05/14/17 13:05 AST 23 U/L (15-37) D 05/14/17 13:05 ALT 9 U/L (12-78) L D 05/14/17 13:05 Alkaline Phosphatase 71 U/L (45-117) 05/14/17 13:05 Troponin I 0.02 ng/ml (0.00-0.05) 05/14/17 13:05 Total Protein 6.3 g/dl (6.4-8.2) L 05/14/17 13:05 Albumin 3.7 g/dl (3.4-5.0) 05/14/17 13:05 Lipase 150 U/L (73-393) 05/14/17 13:05 Current Medications Generic Name Dose Route Start Last Admin Trade Name Freq PRN Reason Stop Dose Admin Acetaminophen 650 mg 05/14/17 16:45 Tylenol - PO Q4H PRN FEVER OR PAIN Aspirin 81 mg 05/14/17 22:00 Asa - PO HS [facility] Atenolol 50 mg 05/15/17 10:00 Tenormin - PO DAILY [facility] Atorvastatin Calcium 40 mg 05/14/17 22:00 Lipitor - PO HS [facility] Carbidopa/Levodopa 1 each 05/14/17 22:00 Sinemet 25/100 - PO TID [facility] Heparin Sodium (Porcine) 5,000 unit 05/14/17 22:00 Heparin - SQ BID [facility] Potassium Chloride/Dextrose/Sod Cl 20 meq in 1,000 mls @ 75 mls/hr 05/14/17 16 :45 D5-1/2ns+20 Meq Kcl - IV ASDIR BALDEV Lorazepam 0.5 mg 05/14/17 16:44 Ativan - PO DAILY PRN NAUSEA Ondansetron HCl 4 mg 05/14/17 16:44 Zofran - PO DAILY PRN NAUSEA Oseltamivir Phosphate 75 mg 05/14/17 22:00 Tamiflu - PO 05/19/17 21:59 BID [facility] Polyethylene Glycol 17 gm 05/15/17 10:00 Miralax (For Daily Use) - PO DAILY [facility] Sertraline HCl 100 mg 05/14/17 22:00 Zoloft - PO BID [facility] Constitutional: Yes: Anxious Eyes: Yes: Conjunctiva Clear HENT: Yes: Normocephalic Neck: Yes: Supple Cardiovascular: Yes: Regular Rate and Rhythm (left PPM) Respiratory: Yes: CTA Bilaterally Gastrointestinal Inspection: Yes: Distention ...Auscultate: Yes: Normoactive Bowel Sounds ...Palpate: Yes: Soft, Other (nontender) ...Percussion: Yes: Tympanitic ...Rectal Exam: Yes: Guaiac Negative (loose light brown) Genitourinary: Yes: Other (3+ prostate, no hernias, normal testicles) Edema: No Peripheral Pulses WNL: Yes Neurological: Yes: Alert, Oriented Labs: CBC, BMP 05/14/17 13:05 05/14/17 13:05 INR, PTT INR 1.12 (0.82-1.09) 05/14/17 13:05 Imaging - Results Cat Scan: Report Reviewed (Aren Garcia Name: [facility] Phys: Pastor Curran MD : 1940 Age: 77 Sex: M [facility] Acct: [id number] Loc: [address] Exam Date: 05/14/17 Status: [place] [id number] Unit Number: [id number] EXAM#: TYPE/EXAM: RESULT: [id number] CT/ABDOMEN PELVIS CT W/O CONTR Abdomen and pelvis CT (without contrast) Clinical information: lower abdominal pain Multiplanar imaging was performed. No intravenous or enteric contrast was administered. No evidence of pneumoperitoneum, free intraperitoneal fluid, abscess or bowel obstruction. The appendix appears unremarkable. No CT evidence of acute diverticulitis. There is no gross small bowel pathology. As noted on a prior CT study of 12/22/2016 there appears to be irregular soft tissue thickening along the posterior wall of the urinary bladder suggestive of neoplastic disease. The contiguous fat planes appear intact. No definite lymphadenopathy is identified. There is at least moderate prostate enlargement. Right hepatic lobe cyst. The spleen, pancreas, adrenal glands demonstrate no discrete noncontrast pathology. Cholelithiasis. No biliary tract dilatation is noted. There is no hydronephrosis. Mild to moderate left renal cortical atrophy. Multiple bilateral renal cortical cysts. There is no aortic aneurysm. Transvenous cardiac pacemaker in place. The visualized osseous structures demonstrate no obvious acute pathology. Moderate to marked L4-L5 degenerative disc changes. impression: No definite findings of acute pathology are identified. There has been no obvious interval change in comparison to a prior CT exam of 12/22/2016. Soft tissue density is noted within the urinary bladder posteriorly suggestive of neoplastic disease. Accurate comparison with the previous study in regards to lesion size is difficult due to varying urinary bladder distention between the exams. No obvious metastatic neoplastic disease is identified. Prostate enlargement which is at least moderate. Cholelithiasis. Mild to moderate left renal cortical atrophy. Multiple bilateral renal cortical cysts. Reported By: Ren Foster MD 05/14/17 1554 PASTOR CURRAN Technologist: Samson Galvan Transcribed Date/Time: 05/14/171553 Retail Operations Manager: Ren Foster Printed Date/Time: By: Signed by: Ren Foster Signed on: 14-May-2017 15:55) Problem List - Problems (1) Abdominal pain Assessment/Plan: Suspect colicky pain that s commonly associated with an infectious enterocolitis as part of the influenza infection. CT scan reviewed and no obstruction or acute inflammatory processes are seen Code(s): R10.9 - UNSPECIFIED ABDOMINAL PAIN Qualifiers: Abdominal location: periumbilical Qualified Code(s): R10.33 - Periumbilical pain (2) Acute infectious diarrhea Assessment/Plan: Suspect diarrhea reflects influenza but will screen for other pathogens Code(s): A09 - INFECTIOUS GASTROENTERITIS AND COLITIS, UNSPECIFIED (3) Parkinson disease Code(s): G20 - PARKINSON'S DISEASE (4) Bladder mass Assessment/Plan: advise urological consultation Code(s): N32.89 - OTHER SPECIFIED DISORDERS OF BLADDER (5) Constipation Assessment/Plan: Suspect that the chronic constipation reflects Parkinson's Disease which is probably the cause of abdominal pain due to gaseous distension /stool retention. I have however advised a colonoscopy for colon cancer screening after discharge Code(s): K59.00 - CONSTIPATION, UNSPECIFIED Qualifiers: Constipation type: other constipation type Qualified Code(s): K59.09 - Other constipation (6) Cholelithiasis Code(s): K80.20 - CALCULUS OF GALLBLADDER W/O CHOLECYSTITIS W/O OBSTRUCTION (7) Nephrolithiasis Code(s): N20.0 - CALCULUS OF KIDNEY Assessment/Plan Clear liquids Screen for enteric pathogens although suspect influenza is the culprit Colonoscopy as outpatient
[2017-05-14] MEDS ORDERED: RANITIDINE HCL 150 MG TABLET (FP) PO ONE (19:53)
[2017-05-14] MEDS ORDERED: RANITIDINE HCL 150 MG TABLET (FP) ONE (19:54)
[2017-05-14] MEDS ORDERED: KCL 10 MEQ IVPB 10 MEQ/100 ML INFUS.BAG IVPB SCH (21:45)
[2017-05-14] MEDS ORDERED: OSELTAMIVIR PHOSPHATE 75 MG CAPSULE PO SCH (22:00)
[2017-05-14] MEDS: DEXTROSE 5%-0.45% SALINE 1,000 ML IV SCH (22:09)
[2017-05-14] MEDS: LORazepam 0.5 MG TABLET PO PRN (22:10)
[2017-05-14] MEDS: ATORVASTATIN CA 40 MG TABLET (FP) PO SCH (22:10)
[2017-05-14] MEDS: SERTRALINE HCL 50 MG TABLET (FP) PO SCH (22:10)
[2017-05-14] MEDS: ASPIRIN 81 MG CHEWABLE TABLETS PO SCH (22:10)
[2017-05-14] MEDS: HEPARIN NA (PORCINE) 5,000 UNITS/ML 1ML VIAL SQ SCH (22:11)
[2017-05-14] MEDS ORDERED: POTASSIUM CHLORIDE 20 MEQ in SODIUM CHLORIDE 250 ML IVPB ONE (22:15)
[2017-05-14 22:52] VITALS: BMI 27.3
[2017-05-14] MEDS: CARBIDOPA/LEVODOPA 25/100 TABLET (FP) PO SCH (22:54)
[2017-05-14] MEDS: OSELTAMIVIR PHOSPHATE 30 MG CAPSULE PO SCH (22:54)
[2017-05-15] MEDS: ONDANSETRON 4 MG TABLET PO PRN ×2 (05:07→15:28)
[2017-05-15] MEDS: CARBIDOPA/LEVODOPA 25/100 TABLET (FP) PO SCH ×3 (05:08→21:13)
[2017-05-15 07:37] LABS: BASO % 0.4 % (0-2.0); EOS % 0.5 % (0-4.5); HEMATOCRIT 38.8 % (35.4-49); HEMOGLOBIN 12.8 GM/dL (11.7-16.9); LYMPH % 14.5 % (8-40); MCH 29.5 pg (25.7-33.7); MCHC 32.9 g/dl (32.0-35.9); MEAN CELL VOLUME 89.7 fl (80-96); MEAN PLT VOLUME 7.9 fl (7.5-11.1); MONO % 13.5 % (3.8-10.2); NEUT % 71.1 % (42.8-82.8); PLATELET COUNT 136 K/MM3 (134-434); RBC 4.33 M/mm3 (4.00-5.60); RDW 13.5 % (11.9-15.9); WHITE BLOOD COUNT 6.4 K/mm3 (4.0-10.0)
[2017-05-15 08:16] LABS: ALBUMIN 2.9 g/dl (3.4-5.0); ANION GAP 10 (8-16); BLOOD UREA NITROGEN 20 mg/dL (7-18); CHLORIDE 102 mmol/L (98-107); CO2 28 mmol/L (21-32); GLUCOSE,RANDOM 86 mg/dL (74-106); LIPASE 140 U/L (73-393); SODIUM 140 mmol/L (136-145)
[2017-05-15 08:20] LABS: ALK PHOS 55 U/L (45-117); BILIRUBIN,TOTAL 0.9 mg/dL (0.2-1.0); CREATININE 1.2 mg/dL (0.7-1.3); SGOT/AST 27 U/L (15-37); SGPT/ALT 9 U/L (12-78); TOT PROT 5.4 g/dl (6.4-8.2)
[2017-05-15] MEDS ORDERED: PT OWN MED DRAWER 7, Y5N ONE ×3 (09:07→20:57)
[2017-05-15] MEDS: HEPARIN NA (PORCINE) 5,000 UNITS/ML 1ML VIAL SQ SCH ×2 (09:45→21:13)
[2017-05-15] MEDS: SERTRALINE HCL 50 MG TABLET (FP) PO SCH ×2 (09:45→21:13)
[2017-05-15] MEDS: OSELTAMIVIR PHOSPHATE 30 MG CAPSULE PO SCH ×2 (09:46→21:14)
[2017-05-15] MEDS: POLYETHYLENE GLYCOL 3350 119 GM BTL PO SCH (09:46)
[2017-05-15] MEDS ORDERED: ATENOLOL 25 MG TABLET (FP) PO SCH (10:00)
--- NOTE | 2017-05-15 10:10 | HP ---
Admitting History and Physical - Admission History of Present Illness: 77 year old male with a significant PMH of hypertension, hyperlipidemia, anxiety , Parkinsons, cardiac conduction abnormality s/p pacemaker placement, and benign prostatic hyperplasia who presents to the emergency department with lower abdominal pain, chills and cough for the past two day. The patient states he had chills and cough two nights ago followed by intermittent lower abdominal pain. The patient reports no alleviating or exacerbating factors. The patient notes he was here two months ago for similar symptoms and told he was constipated. His last bowel movement was two days ago and states he normally goes more frequently. The patient denies chest pain, shortness of breath, headache and dizziness. Denies fever, chills, nausea, vomit, and diarrhea. Denies dysuria, frequency, urgency and hematuria. 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 Cardiovascular: Yes: HTN, Hyperlipdemia, Other (PPM for complete heart block leading to syncope in 2013) Gastrointestinal: Yes: Constipation Hepatobiliary: Yes: Cholelithiasis, Other (liver cyst) Renal/: Yes: BPH (requiring TURP 01/04/17), Renal Calculi (requiring ESWL), Other (had bladder tumor excised by Dr Cox) Psych: Yes: Anxiety Dermatology: Yes: Basal Cell (excised from left shoulder) - Past Surgical History Past Surgical History: Yes: Permanent Pacemaker, TURP - Smoking History Smoking history: Never smoked Have you smoked in the past 12 months: No - Alcohol/Substance Use Hx Alcohol Use: No - Social History ADL: Independent 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 History of Recent Travel: No Home Medications - Allergies Allergies/Adverse Reactions: Allergies Allergy/AdvReac Type Severity Reaction Status Date / Time No Known Allergies Allergy Verified 05/14/17 12:11 - Home Medications Home Medications: Ambulatory Orders Amlodipine Besylate [Norvasc -] 10 mg PO DAILY 09/05/13 Atenolol [Tenormin -] 50 mg PO DAILY 09/05/13 Atorvastatin Ca [Lipitor] 40 mg PO HS 09/05/13 Hydrochlorothiazide [Hctz -] 25 mg PO DAILY 09/05/13 Lorazepam 0.5 mg PO DAILY PRN 09/05/13 Ramipril 50 mg PO BID 09/05/13 Sertraline HCl [Zoloft] 100 mg PO BID 01/21/14 Aspirin [ASA -] 81 mg PO HS 01/27/14 Ondansetron HCl [Zofran] 4 mg PO DAILY PRN #5 tablet 11/24/16 Carbidopa/Levodopa 25/100 [Sinemet 25/100 -] 1 each PO TID 12/18/16 Polyethylene Glycol 3350 [Miralax (For Daily Use) -] 17 gm PO DAILY #1 bottle Ubidecarenone [Co Q-10] 150 mg PO TID 01/02/17 Family Disease History - Family Disease History Family Disease History: CA: Mother ( 71 esophageal cancer), Other: Father ( 90 OMS) Review of Systems - Review of Systems Constitutional: reports: Fever, Weakness Cardiovascular: denies: Chest Pain Respiratory: reports: Cough Gastrointestinal: reports: Abdominal Pain Physical Examination Vital Signs: Vital Signs Temperature 98.7 F 05/15/17 05:11 Pulse Rate 60 05/15/17 05:11 Respiratory Rate 16 05/15/17 05:11 Blood Pressure 129/62 05/15/17 05:11 O2 Sat by Pulse Oximetry (%) 98 05/15/17 02:00 Cardiovascular: Yes: Regular Rate and Rhythm Respiratory: Yes: Regular, CTA Bilaterally Gastrointestinal: Yes: Normal Bowel Sounds, Soft. No: Tenderness Edema: No Neurological: Yes: Tremors Labs: CBC, BMP 05/15/17 06:45 05/15/17 06:45 Problem List - Problems (1) Influenza Assessment/Plan: isolation tamiflu id consult Code(s): J11.1 - FLU DUE TO UNIDENTIFIED INFLUENZA VIRUS W OTH RESP MANIFEST (2) Abdominal pain Assessment/Plan: ct nad gi consult noted Code(s): R10.9 - UNSPECIFIED ABDOMINAL PAIN Qualifiers: Abdominal location: periumbilical Qualified Code(s): R10.33 - Periumbilical pain (3) Acute infectious diarrhea Assessment/Plan: cultures sent Code(s): A09 - INFECTIOUS GASTROENTERITIS AND COLITIS, UNSPECIFIED (4) Bladder mass Assessment/Plan: urorlogy consult Code(s): N32.89 - OTHER SPECIFIED DISORDERS OF BLADDER (5) Parkinson disease Assessment/Plan: same meds Code(s): G20 - PARKINSON'S DISEASE (6) Hypotension Assessment/Plan: hold amlodipine ivf Code(s): I95.9 - HYPOTENSION, UNSPECIFIED
--- NOTE | 2017-05-15 10:19 | PN ---
Progress Note (short form) - Note Progress Note: ID consult dictated 77 year old man lives at home history of PD developed dry cough and weakness yesterday has chronic abdominal pain secondary to sinemet had an episode nonbloody diarrhea in the ED influenza screen positve for influenza A started on Tamiflu Influenza A suspect gi symptoms secondary to Influenza stool studies have been sent by GI continue tamiflu continue IVF droplet isolation Problem List - Problems (1) Influenza A Code(s): J10.1 - FLU DUE TO OTH IDENT INFLUENZA VIRUS W OTH RESP MANIFEST (2) Diarrhea Code(s): R19.7 - DIARRHEA, UNSPECIFIED
--- NOTE | 2017-05-15 11:36 | CONS ---
DATE OF CONSULTATION: REQUESTING PHYSICIAN: Nilsa Resendiz MD HISTORY: This is a 77-year-old man with Parkinson disease. He presented to the emergency room yesterday with acute onset of a dry cough and weakness. He has chronic abdominal pain, which he attributes to Sinemet, which he has been taking for the last 2 years. After arrival at the emergency room, he had an episode of nonbloody diarrhea. He has had 1 or 2 episodes since that time. Given the diarrhea in the emergency room, he had a CAT scan of his abdomen and pelvis done that was notable for an irregular soft tissue thickening of the urinary bladder. Otherwise, there was no evidence of acute pathology. He was seen by GI who ordered some influenza studies, and I am asked to see him for his positive influenza test. He is resting comfortably this morning. He had one more episode of diarrhea. He has no acute abdominal pain. He has no vomiting. He still feels weak and tired. PAST MEDICAL HISTORY: Notable for history of Parkinson disease, hypertension, hyperlipidemia, constipation, cholelithiasis, BPH, renal calculi, bladder tumor, anxiety, and basal cell cancer. PAST SURGICAL HISTORY: Noted to be for a permanent pacemaker. He has had a TURP. Left shoulder basal cell cancer excision. He had a TURBT for a benign tumor. He has had laser lithotripsy for his renal calculi. ALLERGIES: He has no known drug allergies. MEDICATIONS: At home include amlodipine, atenolol, atorvastatin, hydrochlorothiazide, lorazepam, ramipril, Sertraline, aspirin, carbidopa/levodopa, polyethylene glycol, Coenzyme Q, and Zofran p.r.n. FAMILY HISTORY: Noncontributory. SOCIAL HISTORY: He lives with his . 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 She was recently in [place] and returned on the . She has been well without any GI illnesses. They have seen their grandchildren over the holidays who range in age from 1-12 who had all just recovered from a GI illness. He is up to date on his influenza and pneumococcal vaccine. REVIEW OF SYSTEMS: He denies weight loss. He notes that every time he takes a Sinemet he has GI discomfort. This has been persistent for 2 years. PHYSICAL EXAMINATION: Vital Signs: His T-max is 101.3, current temperature is 98.7, pulse 60, blood pressure 129/62, respiratory rate 16. He is saturating 98% on room air. HEENT: He is normocephalic. His eyes are anicteric. Neck: Supple. Lungs: Clear to auscultation. Heart: Regular rate and rhythm. Abdomen: Soft and nontender. Extremities: Without edema. DIAGNOSTIC DATA: Chest x-ray is without any acute pathology. CAT scan findings as previously stated. He has some evidence of a soft tissue mass in his bladder. Otherwise, no acute pathology on CAT scan. His influenza screen is positive for influenza A. In summary, this is a 77-year-old man with Parkinson disease admitted with influenza A and diarrhea. I suspect his diarrhea is secondary to his influenza. Stool studies have been sent by GI with continued Tamiflu. Continue IV fluids. Further recommendations to follow. If he continues to improve, I suspect he would be ready to go home in the morning. COLLEEN CHANDRA M.D. [id number]
[2017-05-15] MEDS ORDERED: SODIUM CHLORIDE 250 ML with POTASSIUM CHLORIDE 20 MEQ IVPB ONE (13:00)
--- NOTE | 2017-05-15 13:39 | CON.GU ---
Consult Consult Specialty:: Referred by:: Martín Reason for Consultation:: bladder mass on CT - History of Present Illness Chief Complaint: cough, chills, constipation History of Present Illness: 77 year old male admitted with cough and chills. CT scan was read as bladder mass concerning for malignancy. Patient denies any new or significant urinary symptoms. He had the same CT findings in December. Cystoscopy and resection of mass revealed that the mass is in fact benign prostatic tissue invading into the bladder i.e. median lobe of the prostate. 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 History of Recent Travel: No Home Medications - Allergies Allergies/Adverse Reactions: Allergies Allergy/AdvReac Type Severity Reaction Status Date / Time No Known Allergies Allergy Verified 05/14/17 12:11 - Home Medications Home Medications: Ambulatory Orders Amlodipine Besylate [Norvasc -] 10 mg PO DAILY 09/05/13 Atenolol [Tenormin -] 50 mg PO DAILY 09/05/13 Atorvastatin Ca [Lipitor] 40 mg PO HS 09/05/13 Hydrochlorothiazide [Hctz -] 25 mg PO DAILY 09/05/13 Lorazepam 0.5 mg PO DAILY PRN 09/05/13 Ramipril 50 mg PO BID 09/05/13 Sertraline HCl [Zoloft] 100 mg PO BID 01/21/14 Aspirin [ASA -] 81 mg PO HS 01/27/14 Ondansetron HCl [Zofran] 4 mg PO DAILY PRN #5 tablet 11/24/16 Carbidopa/Levodopa 25/100 [Sinemet 25/100 -] 1 each PO TID 12/18/16 Polyethylene Glycol 3350 [Miralax (For Daily Use) -] 17 gm PO DAILY #1 bottle Ubidecarenone [Co Q-10] 150 mg PO TID 01/02/17 Family Disease History - Family Disease History Family Disease History: CA: Mother ( 71 esophageal cancer), Other: Father ( 90 OMS) Review of Systems - Review of Systems Genitourinary: reports: No Symptoms Physical Exam- Vital Signs: Vital Signs Temperature 98.4 F 05/15/17 09:00 Pulse Rate 60 05/15/17 09:00 Respiratory Rate 18 05/15/17 09:00 Blood Pressure 108/54 05/15/17 09:00 O2 Sat by Pulse Oximetry (%) 98 05/15/17 09:00 Renal/: No: Bladder Distention, CVA Tenderness - Left, CVA Tenderness - Right , Zarate Present, Hematuria Labs: CBC, BMP 05/15/17 06:45 05/15/17 06:45 Problem List - Problems (1) Benign prostatic hyperplasia (BPH) with straining on urination Code(s): N40.1 - BENIGN PROSTATIC HYPERPLASIA WITH LOWER URINARY TRACT SYMP; R39.16 - STRAINING TO VOID (2) Benign prostatic hyperplasia (BPH) with straining on urination Code(s): N40.1 - BENIGN PROSTATIC HYPERPLASIA WITH LOWER URINARY TRACT SYMP; R39.16 - STRAINING TO VOID (3) Bladder mass Assessment/Plan: mass is in fact benign prostate tissue. No new acute urinary complaints. Follow up as outpatient Code(s): N32.89 - OTHER SPECIFIED DISORDERS OF BLADDER
[2017-05-15] MEDS ORDERED: SODIUM CHLORIDE 250 ML with POTASSIUM CHLORIDE 20 MEQ IV ONE (14:30)
--- NOTE | 2017-05-15 19:01 | PN ---
GI Progress Note Subjective: GI NOte: Feeling much better, Diarrhea subsiding. Hungry. C diff negative - Objective Vital Signs: Vital Signs Temperature 98 F 05/15/17 17:43 Pulse Rate 71 05/15/17 17:43 Respiratory Rate 18 05/15/17 17:43 Blood Pressure 148/71 05/15/17 17:43 O2 Sat by Pulse Oximetry (%) 98 05/15/17 17:00 Constitutional: Calm ...Auscultate: Yes: Normoactive Bowel Sounds ...Palpate: Yes: Soft, Other (nontender) Labs: CBC, BMP 05/15/17 06:45 05/15/17 06:45 INR, PTT INR 1.12 (0.82-1.09) 05/14/17 13:05 Problem List - Problems (1) Abdominal pain Assessment/Plan: Resolved. Will advance diet Code(s): R10.9 - UNSPECIFIED ABDOMINAL PAIN Qualifiers: Abdominal location: periumbilical Qualified Code(s): R10.33 - Periumbilical pain (2) Acute infectious diarrhea Code(s): A09 - INFECTIOUS GASTROENTERITIS AND COLITIS, UNSPECIFIED (3) Parkinson disease Code(s): G20 - PARKINSON'S DISEASE (4) Bladder mass Code(s): N32.89 - OTHER SPECIFIED DISORDERS OF BLADDER (5) Constipation Code(s): K59.00 - CONSTIPATION, UNSPECIFIED Qualifiers: Constipation type: other constipation type Qualified Code(s): K59.09 - Other constipation (6) Cholelithiasis Code(s): K80.20 - CALCULUS OF GALLBLADDER W/O CHOLECYSTITIS W/O OBSTRUCTION (7) Nephrolithiasis Code(s): N20.0 - CALCULUS OF KIDNEY
[2017-05-15] MEDS: ATORVASTATIN CA 40 MG TABLET (FP) PO SCH (21:13)
[2017-05-15] MEDS: LORazepam 0.5 MG TABLET PO PRN (21:13)
[2017-05-15] MEDS: ASPIRIN 81 MG CHEWABLE TABLETS PO SCH (21:13)
[2017-05-15] MEDS: DEXTROSE 5%-0.45% SALINE 1,000 ML IV SCH (21:14)
[2017-05-16] MEDS ORDERED: PT OWN MED DRAWER 7, Y5N ONE ×2 (06:16→09:08)
[2017-05-16] MEDS: CARBIDOPA/LEVODOPA 25/100 TABLET (FP) PO SCH ×3 (06:20→21:28)
[2017-05-16] MEDS: ONDANSETRON 4 MG TABLET PO PRN (06:20)
[2017-05-16] MEDS: DEXTROSE 5%-0.45% SALINE 1,000 ML IV SCH (06:20)
[2017-05-16 08:47] LABS: BASO % 0.3 % (0-2.0); EOS % 1.5 % (0-4.5); HEMATOCRIT 42.2 % (35.4-49); LYMPH % 13.8 % (8-40); MCH 29.6 pg (25.7-33.7); MCHC 33.2 g/dl (32.0-35.9); MEAN CELL VOLUME 89.2 fl (80-96); MEAN PLT VOLUME 7.7 fl (7.5-11.1); MONO % 9.6 % (3.8-10.2); NEUT % 74.8 % (42.8-82.8); PLATELET COUNT 149 K/MM3 (134-434); RBC 4.73 M/mm3 (4.00-5.60)
--- NOTE | 2017-05-16 09:05 | PN ---
Progress Note, Physician History of Present Illness: c/o weakness no cp - Current Medication List Current Medications: Active Medications Acetaminophen (Tylenol -) 650 mg PO Q4H PRN PRN Reason: FEVER OR PAIN Aspirin (Asa -) 81 mg PO HS [facility] Last Admin: 05/15/17 21:13 Dose: 81 mg Atenolol (Tenormin -) 50 mg PO DAILY [facility] Last Admin: 05/15/17 09:46 Dose: 25 mg Atorvastatin Calcium (Lipitor -) 40 mg PO HS [facility] Last Admin: 05/15/17 21:13 Dose: 40 mg Carbidopa/Levodopa (Sinemet 25/100 -) 1 each PO TID [facility] Last Admin: 05/16/17 06:20 Dose: 1 each Heparin Sodium (Porcine) (Heparin -) 5,000 unit SQ BID [facility] Last Admin: 05/15/17 21:13 Dose: 5,000 unit Dextrose/Sodium Chloride (D5-1/2ns -) 1,000 mls @ 75 mls/hr IV ASDIR [facility] Last Admin: 05/16/17 06:20 Dose: 75 mls/hr Lorazepam (Ativan -) 0.5 mg PO DAILY PRN PRN Reason: NAUSEA Last Admin: 05/15/17 21:13 Dose: 0.5 mg Ondansetron HCl (Zofran -) 4 mg PO DAILY PRN PRN Reason: NAUSEA Last Admin: 05/16/17 06:20 Dose: 4 mg Oseltamivir Phosphate (Tamiflu -) 30 mg PO BID [facility] Stop: 05/19/17 21:59 Last Admin: 05/15/17 21:14 Dose: 30 mg Polyethylene Glycol (Miralax (For Daily Use) -) 17 gm PO DAILY [facility] Last Admin: 05/15/17 09:46 Dose: Not Given Sertraline HCl (Zoloft -) 100 mg PO BID [facility] Last Admin: 05/15/17 21:13 Dose: 100 mg - Objective Vital Signs: Vital Signs Temperature 98.3 F 05/16/17 05:00 Pulse Rate 66 05/16/17 05:00 Respiratory Rate 18 05/16/17 05:00 Blood Pressure 103/56 05/16/17 05:00 O2 Sat by Pulse Oximetry (%) 98 05/16/17 01:00 Cardiovascular: Yes: Regular Rate and Rhythm Respiratory: Yes: Rhonchi Gastrointestinal: Yes: Normal Bowel Sounds, Soft Edema: No Neurological: Yes: Tremors Labs: CBC, BMP 05/16/17 07:40 INR, PTT INR 1.12 (0.82-1.09) 05/14/17 13:05 Problem List - Problems (1) Influenza Assessment/Plan: isolation tamiflu id consult Code(s): J11.1 - FLU DUE TO UNIDENTIFIED INFLUENZA VIRUS W OTH RESP MANIFEST (2) Abdominal pain Assessment/Plan: reolved ct nad gi consult noted Code(s): R10.9 - UNSPECIFIED ABDOMINAL PAIN Qualifiers: Abdominal location: periumbilical Qualified Code(s): R10.33 - Periumbilical pain (3) Acute infectious diarrhea Assessment/Plan: cultures sent c dif negative advance diet Code(s): A09 - INFECTIOUS GASTROENTERITIS AND COLITIS, UNSPECIFIED (4) Bladder mass Assessment/Plan: urorlogy consult noted Code(s): N32.89 - OTHER SPECIFIED DISORDERS OF BLADDER (5) Parkinson disease Assessment/Plan: same meds neuro consult due to sinemet s/e Code(s): G20 - PARKINSON'S DISEASE (6) Hypotension Assessment/Plan: hold amlodipine ivf decrease atenolol Code(s): I95.9 - HYPOTENSION, UNSPECIFIED
[2017-05-16] MEDS: SERTRALINE HCL 50 MG TABLET (FP) PO SCH ×2 (09:17→21:28)
[2017-05-16 09:18] LABS: ANION GAP 5 (8-16); BLOOD UREA NITROGEN 13 mg/dL (7-18); CALCIUM 8.1 mg/dL (8.5-10.1); CHLORIDE 103 mmol/L (98-107); CO2 32 mmol/L (21-32); CREATININE 1.1 mg/dL (0.7-1.3); GLUCOSE,RANDOM 105 mg/dL (74-106); POTASSIUM 3.4 mmol/L (3.5-5.1); SODIUM 140 mmol/L (136-145)
[2017-05-16] MEDS: OSELTAMIVIR PHOSPHATE 30 MG CAPSULE PO SCH ×2 (09:18→21:28)
[2017-05-16] MEDS: D5-1/2NS+20 MEQ KCL - 20 MEQ/1,000 ML INFUS.BAG IV SCH (09:46)
[2017-05-16] MEDS: HEPARIN NA (PORCINE) 5,000 UNITS/ML 1ML VIAL SQ SCH ×2 (09:47→21:28)
[2017-05-16] MEDS: ATENOLOL 25 MG TABLET (FP) PO SCH (09:47)
[2017-05-16] MEDS: POLYETHYLENE GLYCOL 3350 119 GM BTL PO SCH (09:48)
--- NOTE | 2017-05-16 15:37 | PN ---
Progress Note (short form) - Note Progress Note: diarrhea resolved still GI discomfort with sinemet (longstanding) minimal cough no fever Vital Signs Period Temp Pulse Resp BP Sys/Perez Pulse Ox Last 24 Hr 98 F-98.7 F 60-71 16-20 103-148/56-80 98-98 cor-rrr lungs clear abd soft,nt ext no edema CBC, BMP 05/16/17 07:40 05/16/17 07:40 Microbiology 05/14/17 23:40 Stool Gram Stain - Final 05/14/17 13:12 Blood - Peripheral Venous Blood Culture - Preliminary NO GROWTH OBTAINED AFTER 48 HOURS, INCUBATION TO CONTINUE FOR 3 DAYS. 05/14/17 13:12 Blood - Peripheral Venous Blood Culture - Preliminary NO GROWTH OBTAINED AFTER 48 HOURS, INCUBATION TO CONTINUE FOR 3 DAYS. 05/14/17 15:30 Urine - Urine Clean Catch Urine Culture - Final NO GROWTH OBTAINED 05/14/17 23:40 Stool Clostridium difficile Antigen (PAULINO) - Final 05/14/17 23:40 Stool Clostridium difficile Toxin Assay - Final 05/14/17 13:08 Nasopharyngeal Washes Influenza Types A,B Antigen (PAULINO) - Final 05/14/17 13:08 Nasopharyngeal Washes - Final a/p Influenza A suspect gi symptoms secondary to Influenza droplet isolation no objection to d/c home on po tamiflu to complete 5 days please call back if needed Problem List - Problems (1) Influenza A Code(s): J10.1 - FLU DUE TO OTH IDENT INFLUENZA VIRUS W OTH RESP MANIFEST (2) Diarrhea Code(s): R19.7 - DIARRHEA, UNSPECIFIED
[2017-05-16] MEDS: ASPIRIN 81 MG CHEWABLE TABLETS PO SCH (21:28)
[2017-05-16] MEDS: LORazepam 0.5 MG TABLET PO PRN (21:28)
[2017-05-16] MEDS: ATORVASTATIN CA 40 MG TABLET (FP) PO SCH (21:28)
[2017-05-17] MEDS: D5-1/2NS+20 MEQ KCL - 20 MEQ/1,000 ML INFUS.BAG IV SCH (00:03)
[2017-05-17] MEDS: CARBIDOPA/LEVODOPA 25/100 TABLET (FP) PO SCH ×3 (05:15→22:08)
[2017-05-17] MEDS: SERTRALINE HCL 50 MG TABLET (FP) PO SCH ×2 (10:43→22:07)
[2017-05-17] MEDS: ATENOLOL 25 MG TABLET (FP) PO SCH (10:43)
[2017-05-17] MEDS: HEPARIN NA (PORCINE) 5,000 UNITS/ML 1ML VIAL SQ SCH ×2 (10:44→22:07)
[2017-05-17] MEDS: OSELTAMIVIR PHOSPHATE 30 MG CAPSULE PO SCH ×2 (10:45→22:07)
[2017-05-17] MEDS: POLYETHYLENE GLYCOL 3350 119 GM BTL PO SCH (11:31)
--- NOTE | 2017-05-17 13:07 | PN ---
Progress Note, Physician Chief Complaint: Influenza A - Current Medication List Current Medications: Active Medications Acetaminophen (Tylenol -) 650 mg PO Q4H PRN PRN Reason: FEVER OR PAIN Last Admin: 05/16/17 14:23 Dose: 650 mg Aspirin (Asa -) 81 mg PO HS [facility] Last Admin: 05/16/17 21:28 Dose: 81 mg Atenolol (Tenormin -) 25 mg PO DAILY [facility] Last Admin: 05/17/17 10:43 Dose: 25 mg Atorvastatin Calcium (Lipitor -) 40 mg PO HS [facility] Last Admin: 05/16/17 21:28 Dose: 40 mg Carbidopa/Levodopa (Sinemet 25/100 -) 1 each PO TID [facility] Last Admin: 05/17/17 05:15 Dose: 1 each Heparin Sodium (Porcine) (Heparin -) 5,000 unit SQ BID [facility] Last Admin: 05/17/17 10:44 Dose: 5,000 unit Potassium Chloride/Dextrose/Sod Cl (D5-1/2ns+20 Meq Kcl -) 20 meq in 1,000 mls @ 75 mls/hr IV ASDIR [facility] Last Admin: 05/17/17 00:03 Dose: 75 mls/hr Lorazepam (Ativan -) 0.5 mg PO DAILY PRN PRN Reason: NAUSEA Last Admin: 05/16/17 21:28 Dose: 0.5 mg Ondansetron HCl (Zofran -) 4 mg PO DAILY PRN PRN Reason: NAUSEA Last Admin: 05/16/17 06:20 Dose: 4 mg Oseltamivir Phosphate (Tamiflu -) 30 mg PO BID [facility] Stop: 05/19/17 21:59 Last Admin: 05/17/17 10:45 Dose: 30 mg Polyethylene Glycol (Miralax (For Daily Use) -) 17 gm PO DAILY [facility] Last Admin: 05/17/17 11:31 Dose: Not Given Sertraline HCl (Zoloft -) 100 mg PO BID [facility] Last Admin: 05/17/17 10:43 Dose: 100 mg - Objective Vital Signs: Vital Signs Temperature 98.3 F 05/17/17 09:00 Pulse Rate 65 05/17/17 09:00 Respiratory Rate 18 05/17/17 09:00 Blood Pressure 145/74 05/17/17 09:00 O2 Sat by Pulse Oximetry (%) 95 05/17/17 09:00 Constitutional: Yes: Well Nourished, No Distress, Calm Cardiovascular: Yes: Regular Rate and Rhythm Respiratory: Yes: Regular Musculoskeletal: Yes: WNL Extremities: Yes: WNL Edema: No Peripheral Pulses WNL: Yes Neurological: Yes: Alert, Oriented Psychiatric: Yes: Alert, Oriented Labs: CBC, BMP 05/16/17 07:40 05/16/17 07:40 INR, PTT INR 1.12 (0.82-1.09) 05/14/17 13:05 Problem List - Problems (1) Abdominal pain Assessment/Plan: -resolved -2/2 to Viral syndrome Code(s): R10.9 - UNSPECIFIED ABDOMINAL PAIN Qualifiers: Abdominal location: periumbilical Qualified Code(s): R10.33 - Periumbilical pain (2) Acute infectious diarrhea Assessment/Plan: -resolved -2/2 viral syndrome Code(s): A09 - INFECTIOUS GASTROENTERITIS AND COLITIS, UNSPECIFIED (3) Influenza A Assessment/Plan: -Tamiflu 30 mg po BID- renal dosing -will d/c on tamiflu Code(s): J10.1 - FLU DUE TO OTH IDENT INFLUENZA VIRUS W OTH RESP MANIFEST (4) BPH (benign prostatic hyperplasia) Assessment/Plan: -seen by Urology -CT abd showed bladder mass which has been evaluated in the past and pathology showed benign prostatic tissue Code(s): N40.0 - BENIGN PROSTATIC HYPERPLASIA WITHOUT LOWER URINRY TRACT SYMP Assessment/Plan see problem list d/c home
[2017-05-17] MEDS ORDERED: PT OWN MED DRAWER 7, Y5N ONE ×2 (13:10→22:01)
--- NOTE | 2017-05-17 16:30 | CONSULT ---
Consult - text type - Consultation Consultation Note: NEUROLOGY CONSULTATION is greatly appreciated: This 77 yo RH man is retired [employer] due to "anxiety." PMH sig for HTN, Chol, ASHD, S/P PPM, BPH and Parkinson's disease. On amlodipine, atenolol, atorvastatin, HCTZ, ASA, Sertrline (200 BID), zofran and carbidopa/ Levadopa (25/100) SL (! Parcopa). 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 Was on Ropinirol x 2 years and on L-Dopa x 1 year which was switched from PO to SL due to persistent nausea. Pt still gets nauseous about twice a week. He "sleeps late" then takes the meds at 10, 4, and 10 and notes he is "always tired." Now admitted with GI upset +/- constipation. BHUPINDER: No bruits, s/p PPM NEURO: MS/speech: Normal CN II-XII: masked facies. Gag normal Motor: Bradykinetic. Coarse rest tremor (L>>R). Normal strength and reflexes. Decreased WESLEY's R. Coord: No FTN dystaxia. sensory: Normal Gait: Sl. flexed, shuffling. Reduced arm swing. IMP: Parkinson's disease. PLAN: Change L-Dopa from SL (parcopa) to ER. Change dosing to 8 AM, 1 PM and 6 PM then Increase to 1 1/2 Tabs (ie:37.5/150) TID @ 8, 1, 6. Neuro f/u with me as out patient. Thank you very much, Josse Blanchard MD
[2017-05-17] MEDS: ONDANSETRON 4 MG TABLET PO PRN (19:46)
[2017-05-17] MEDS: LORazepam 0.5 MG TABLET PO PRN (22:07)
[2017-05-17] MEDS: ATORVASTATIN CA 40 MG TABLET (FP) PO SCH (22:07)
[2017-05-17] MEDS: ASPIRIN 81 MG CHEWABLE TABLETS PO SCH (22:08)
[2017-05-18] MEDS: CARBIDOPA/LEVODOPA 25/100 TABLET (FP) PO SCH (05:24)
[2017-05-18 07:30] LABS: ANION GAP 6 (8-16); BLOOD UREA NITROGEN 13 mg/dL (7-18); CALCIUM 8.8 mg/dL (8.5-10.1); CHLORIDE 105 mmol/L (98-107); CO2 32 mmol/L (21-32); GLUCOSE,RANDOM 85 mg/dL (74-106); POTASSIUM 3.6 mmol/L (3.5-5.1); SODIUM 143 mmol/L (136-145)
--- NOTE | 2017-05-18 08:56 | DS ---
Physical Examination Vital Signs: Vital Signs Temperature 97.4 F L 05/18/17 06:00 Pulse Rate 67 05/18/17 06:00 Respiratory Rate 18 05/18/17 06:00 Blood Pressure 144/74 05/18/17 06:00 O2 Sat by Pulse Oximetry (%) 95 05/18/17 01:00 Cardiovascular: Yes: Regular Rate and Rhythm Respiratory: Yes: Regular, CTA Bilaterally Gastrointestinal: Yes: Normal Bowel Sounds, Soft Neurological: Yes: Tremors Labs: CBC, BMP 05/16/17 07:40 05/18/17 06:00 Discharge Summary Reason For Visit: INFLUENZA Current Active Problems Abdominal pain (Acute) Acute infectious diarrhea (Acute) BPH (benign prostatic hyperplasia) (Acute) Benign prostatic hyperplasia (BPH) with straining on urination (Acute) Benign prostatic hyperplasia (BPH) with straining on urination (Acute) Bladder mass (Acute) Cholelithiasis (Acute) Diarrhea (Acute) Hypotension (Acute) Influenza (Acute) Influenza A (Acute) Nephrolithiasis (Acute) Parkinson disease (Acute) Hospital Course: - Problems (1) Abdominal pain Assessment/Plan: -resolved -2/2 to Viral syndrome Code(s): R10.9 - UNSPECIFIED ABDOMINAL PAIN Qualifiers: Abdominal location: periumbilical Qualified Code(s): R10.33 - Periumbilical pain (2) Acute infectious diarrhea Assessment/Plan: -resolved -2/2 viral syndrome Code(s): A09 - INFECTIOUS GASTROENTERITIS AND COLITIS, UNSPECIFIED (3) Influenza A Assessment/Plan: -Tamiflu 30 mg po BID- renal dosing -will d/c on tamiflu Code(s): J10.1 - FLU DUE TO OTH IDENT INFLUENZA VIRUS W OTH RESP MANIFEST (4) BPH (benign prostatic hyperplasia) Assessment/Plan: -seen by Urology -CT abd showed bladder mass which has been evaluated in the past and pathology showed benign prostatic tissue Code(s): N40.0 - BENIGN PROSTATIC HYPERPLASIA WITHOUT LOWER URINRY TRACT SYMP (5) IMP: Parkinson's disease. PLAN: Change L-Dopa from SL (parcopa) to ER. Change dosing to 8 AM, 1 PM and 6 PM then Increase to 1 1/2 Tabs (ie:37.5/150) TID @ 8, 1, 6. Neuro f/u with me as out patient. Assessment/Plan see problem list d/c home Condition: Stable - Instructions Diet, Activity, Other Instructions: Tamiflu 30 mg po (Renal dose) for 1 day post discharge, would complete 4 days in AM Disposition: HOME - Home Medications Comprehensive Discharge Medication List: Ambulatory Orders Amlodipine Besylate [Norvasc -] 10 mg PO DAILY 09/05/13 Atenolol [Tenormin -] 50 mg PO DAILY 09/05/13 Atorvastatin Ca [Lipitor] 40 mg PO HS 09/05/13 Hydrochlorothiazide [Hctz -] 25 mg PO DAILY 09/05/13 Lorazepam 0.5 mg PO DAILY PRN 09/05/13 Ramipril 50 mg PO BID 09/05/13 Sertraline HCl [Zoloft] 100 mg PO BID 01/21/14 Aspirin [ASA -] 81 mg PO HS 01/27/14 Ondansetron HCl [Zofran] 4 mg PO DAILY PRN #5 tablet 11/24/16 Polyethylene Glycol 3350 [Miralax 119 gm Btl -] 17 gm PO DAILY #1 bottle Ubidecarenone [Co Q-10] 150 mg PO TID 01/02/17 Acetaminophen [Tylenol .Regular Strength -] 650 mg PO Q4H PRN tablet 05/17/17 Oseltamivir Phosphate [Tamiflu -] 30 mg PO BID #2 capsule 05/17/17 Carbidopa/Levodopa [Sinemet Cr 25-100 Tablet] 1 each PO TID #135 tablet.er 05/18
[2017-05-18] MEDS ORDERED: PT OWN MED DRAWER 7, Y5N ONE (09:10)
[2017-05-18 09:21] VITALS: BP 100/52; PULSE 110; TEMP 98
[2017-05-18] MEDS: ATENOLOL 25 MG TABLET (FP) PO SCH (09:22)
[2017-05-18] MEDS: SERTRALINE HCL 50 MG TABLET (FP) PO SCH (09:22)
[2017-05-18] MEDS: OSELTAMIVIR PHOSPHATE 30 MG CAPSULE PO SCH (09:22)
[2017-05-18] MEDS: POLYETHYLENE GLYCOL 3350 119 GM BTL PO SCH (09:23)
[2017-05-18] MEDS: HEPARIN NA (PORCINE) 5,000 UNITS/ML 1ML VIAL SQ SCH (09:23)
== END 2017-05-18 10:21 | disposition home or self-care (01) ==
LOC: JER 11:30 → JERBED 16:19 → J4S 21:43
PROVIDERS: ADMIT Family Medicine; ATTEND Family Medicine
PROC: 3E0337Z Introduction of Electrolytic and Water Balance Substance into Peripheral Vein, Percutaneous Approach (ICD-10-PCS; principal; 2017-05-14)
PROC: 3E013GC Introduction of Other Therapeutic Substance into Subcutaneous Tissue, Percutaneous Approach (ICD-10-PCS; 2017-05-14)
DX: J10.1 Influenza due to other identified influenza virus with other respiratory manifestations (principal); A09 Infectious gastroenteritis and colitis, unspecified; N32.89 Other specified disorders of bladder; G20 Parkinson's disease; K59.09 Other constipation; K80.20 Calculus of gallbladder without cholecystitis without obstruction; N20.0 Calculus of kidney; I10 Essential (primary) hypertension; I45.9 Conduction disorder, unspecified; E78.5 Hyperlipidemia, unspecified; F41.9 Anxiety disorder, unspecified; R10.30 Lower abdominal pain, unspecified; I95.9 Hypotension, unspecified; N40.1 Benign prostatic hyperplasia with lower urinary tract symptoms; Z95.0 Presence of cardiac pacemaker; Z87.442 Personal history of urinary calculi; Z79.82 Long term (current) use of aspirin; Z85.828 Personal history of other malignant neoplasm of skin
CPT/HCPCS: 36415; 71045-TC; 71046-TC; 74176-TC; 80048; 80053; 81003; 81015; 83605; 83690; 84484; 85025; 85610; 85730; 86850; 86900; 86901; 87040; 87045; 87046; 87086; 87205; 87324; 87449; 87804; 96360; 96361; 96372; 97116-GP; 97161-GP; 99284-25; G0378; J1644

== ENCOUNTER 2021-10-30 12:05 | Emergency (ER) | payer OTHER, BC ==
[2021-10-30 12:28] VITALS: TEMP 98.1; BMI 32.1
[2021-10-30 13:07] LABS: HEMATOCRIT 38.2 % (35.4-49); HEMOGLOBIN 13.4 G/dL (11.7-16.9); MCHC 34.9 g/dl (32.0-35.9); MEAN CELL VOLUME 94.5 fl (80-96); MEAN PLT VOLUME 7.9 fl (7.5-11.1); PLATELET COUNT 161.8 10^3/uL (134-434); RBC 4.04 10^6/uL (4.00-5.60); RDW 15.4 % (11.9-15.9); WHITE BLOOD COUNT 8.5 10^3/uL (4.0-10.8)
[2021-10-30 13:26] LABS: ALBUMIN 4.1 g/dl (3.4-5.0); BILIRUBIN,TOTAL 1.5 mg/dl (0.2-1); CALCIUM 9.6 mg/dl (8.5-10); CREATININE 1.3 mg/dl (0.55-1.3); TOT PROT 6.8 g/dl (6.4-8.2)
[2021-10-30 13:41] LABS: ERYTHROCYTE SEDIMENTATION RATE 12 mm/hr (0-20)
[2021-10-30 13:46] LABS: ANISOCYTOSIS 1+
[2021-10-30 14:36] LABS: N-TERMINAL BNP 4345.9 pg/ml (5-450)
[2021-10-30] MEDS ORDERED: FUROSEMIDE 40 MG/4 ML INJECTABLE VIAL IVPUSH ONE (14:43)
[2021-10-30] MEDS ORDERED: FUROSEMIDE 40 MG/4 ML INJECTABLE VIAL ONE (14:46)
[2021-10-30 15:23] VITALS: BP 135/90; PULSE 65
== END 2021-10-30 15:15 | disposition home or self-care (01) ==
LOC: FER 12:05
PROC: 3E033NZ Introduction of Analgesics, Hypnotics, Sedatives into Peripheral Vein, Percutaneous Approach (ICD-10-PCS; principal; 2021-10-30)
DX: R60.9 Edema, unspecified (principal)
CPT/HCPCS: 36415; 71045-TC-FY; 73590-TC-LT-FY; 80053; 83880; 84484; 85027; 85651; 86140; 93005; 99284-25

== ENCOUNTER 2022-04-09 10:36 | Emergency (ER) | payer OTHER, BC ==
[2022-04-09 10:54] VITALS: BP 113/66; PULSE 65; RESP 16; TEMP 98.5; BMI 32.3
== END 2022-04-09 12:13 | disposition home or self-care (01) ==
LOC: FER 10:36
DX: S00.83XA Contusion of other part of head, initial encounter (principal); S09.90XA Unspecified injury of head, initial encounter; W06.XXXA Fall from bed, initial encounter
CPT/HCPCS: 70450-TC; 99284-25

== ENCOUNTER 2022-10-09 06:22 | Emergency (ER) | payer OTHER, BC ==
[2022-10-09 06:29] VITALS: BP 148/97; PULSE 80; RESP 18; TEMP 97.5; BMI 30.7
== END 2022-10-09 08:53 | disposition home or self-care (01) ==
LOC: JER 06:22
DX: M79.641 Pain in right hand (principal); G56.02 Carpal tunnel syndrome, left upper limb
CPT/HCPCS: 73130-TC-RT-FY; 99283-25

== ENCOUNTER 2023-10-19 07:44 | Emergency (ER) | payer OTHER, BC ==
[2023-10-19 07:54] VITALS: BP 130/72; PULSE 69; RESP 16; TEMP 98.6; BMI 70.2
[2023-10-19 09:08] LABS: VENOUS BASE EXCESS 1.5 mmol/L (-2-2); VENOUS O2 SATURATION 78.9 % (70-80); VENOUS PCO2 41.3 mmHg (38-52); VENOUS PH 7.419 (7.310-7.410)
[2023-10-19] MEDS: LIDOCAINE 4% PATCH TP ONE (09:08)
[2023-10-19] MEDS ORDERED: LIDOCAINE 4% PATCH TP ONE (09:08)
[2023-10-19 09:10] LABS: BASO % 0.5 % (0-2.0); EOS % 1.6 % (0-4.5); HEMATOCRIT 40.4 % (35.4-49); HEMOGLOBIN 13.5 GM/dL (11.7-16.9); LYMPH % 7.8 % (8-40); MCH 30.9 pg (25.7-33.7); MCHC 33.5 g/dl (32.0-35.9); MEAN CELL VOLUME 92.1 fl (80-96); MONO % 8.3 % (3.8-10.2); NEUT % 81.8 % (42.8-82.8); PLATELET COUNT 197 10^3/uL (134-434); RBC 4.39 M/mm3 (4.00-5.60); RDW 14.5 % (11.9-15.9)
[2023-10-19 09:15] LABS: INR 1.56 (0.83-1.09); PROTHROMBIN TIME (PATIENT) 17.4 SEC (9.7-13.0)
[2023-10-19 09:18] LABS: ACTIVATED PTT 38.7 SECONDS (25.2-36.5)
[2023-10-19 09:24] LABS: POTASSIUM 4.1 mmol/L (3.5-5.1)
[2023-10-19 09:25] LABS: CALCIUM 9.4 mg/dL (8.5-10.1)
[2023-10-19 09:26] LABS: ALBUMIN 4.1 g/dl (3.4-5.0); BLOOD UREA NITROGEN 65.4 mg/dL (7-18)
[2023-10-19] MEDS ORDERED: LIDOCAINE PATCH REMOVAL MC ONE (22:00)
== END 2023-10-19 11:15 | disposition left against medical advice (07) ==
LOC: JER 07:44
DX: N17.9 Acute kidney failure, unspecified (principal); M25.531 Pain in right wrist; Z20.822 Contact with and (suspected) exposure to COVID-19
CPT/HCPCS: 0241U-QW; 36415; 71046-TC-FY; 71101-TC-RT-FY; 73110-TC-RT-FY; 73130-TC-RT-FY; 80053; 82550; 82553; 82803; 84484; 85025; 85610; 85730; 93005; 93010; 99285-25

== ENCOUNTER 2023-12-10 23:43 | Emergency (ER) | payer OTHER, BC ==
[2023-12-10 23:55] VITALS: BP 173/103; PULSE 69; RESP 20; TEMP 97.4; BMI 31.4
== END 2023-12-11 01:28 | disposition home or self-care (01) ==
LOC: JER 23:43
DX: L76.22 Postprocedural hemorrhage of skin and subcutaneous tissue following other procedure (principal)
CPT/HCPCS: 99283-25

== ENCOUNTER 2024-01-22 04:08 | Inpatient (IN) | payer OTHER, BC ==
[2024-01-22 04:24] VITALS: BMI 32.1
[2024-01-22] MEDS ORDERED: ACETAMINOPHEN INJECTION 100 ML ONE (04:47)
[2024-01-22] MEDS ORDERED: ONDANSETRON 4 MG/2 ML VIAL ONE (04:47)
[2024-01-22] MEDS ORDERED: FAMOTIDINE 20 MG/50 ML IVPB 20 MG/50 ML MG IVPB ONE (04:47)
[2024-01-22] MEDS: ACETAMINOPHEN 1000 MG/100 ML BAG IVPB ONE (05:07)
[2024-01-22] MEDS: ONDANSETRON 4 MG/2 ML VIAL IVPUSH ONE (05:08)
[2024-01-22] MEDS: FAMOTIDINE 20 MG/50 ML IVPB 20 MG/50 ML MG IVPB ONE (05:08)
[2024-01-22] MEDS ORDERED: MORPHINE SULFATE 2 MG/ML SYRINGE ONE (05:52)
[2024-01-22] MEDS: morphine CARPU-JECT 2 MG/1 ML DISP.SYRIN IVPUSH ONE (05:57)
[2024-01-22 06:29] LABS: BASO % 0.6 % (0-2.0); EOS % 1.9 % (0-4.5); HEMATOCRIT 39.4 % (35.4-49); HEMOGLOBIN 13.1 GM/dL (11.7-16.9); LYMPH % 8.6 % (8-40); MCH 31.1 pg (25.7-33.7); MCHC 33.2 g/dl (32.0-35.9); MEAN CELL VOLUME 93.6 fl (80-96); MEAN PLT VOLUME 7.8 fl (7.5-11.1); MONO % 7.4 % (3.8-10.2); NEUT % 81.5 % (42.8-82.8); PLATELET COUNT 202 10^3/uL (134-434); RBC 4.21 M/mm3 (4.00-5.60); RDW 16.1 % (11.9-15.9); WHITE BLOOD COUNT 10.3 K/mm3 (4.0-10.0)
[2024-01-22 06:44] LABS: INR 1.6 (0.83-1.09); PROTHROMBIN TIME (PATIENT) 17.8 SEC (9.7-13.0)
[2024-01-22 06:47] LABS: ACTIVATED PTT 36.5 SECONDS (25.2-36.5)
[2024-01-22 06:51] LABS: ALBUMIN 4.1 g/dl (3.4-5.0); BLOOD UREA NITROGEN 30.5 mg/dL (7-18); CALCIUM 9.6 mg/dL (8.5-10.1)
[2024-01-22 06:54] LABS: CREATININE 1.5 mg/dL (0.55-1.3)
[2024-01-22 06:56] LABS: BILIRUBIN,TOTAL 1.7 mg/dL (0.2-1); TOT PROT 6.9 g/dl (6.4-8.2)
[2024-01-22 06:59] LABS: N-TERMINAL BNP 2563.5 pg/ml (5-450)
[2024-01-22] MEDS ORDERED: FUROSEMIDE 40 MG/4 ML INJECTABLE VIAL ONE ×2 (08:19→15:49)
[2024-01-22] MEDS: FUROSEMIDE 40 MG/4 ML INJECTABLE VIAL IVPUSH ONE (09:56)
[2024-01-22 11:09] LABS: EPI CELLS 1 /uL (0-25.1); HYALINE CASTS 0 /uL (0-3.1); URINE APPEARANCE CLEAR; URINE BACTERIA 0 /uL (0-1359); URINE BILIRUBIN NEGATIVE (NEGATIVE); URINE COLOR YELLOW; URINE GLUCOSE (UA) NEGATIVE (NEGATIVE); URINE KETONE NEGATIVE (NEGATIVE); URINE LEUK ESTERASE NEGATIVE (NEGATIVE); URINE NITRITE NEGATIVE (NEGATIVE); URINE PROTEIN 1+ (NEGATIVE); URINE RBC 16 /uL (0-23.9); URINE UROBILINOGEN 0.2 mg/dL (0.2-1.0); URINE WBC 1 /uL (0-25.8)
[2024-01-22] MEDS: FUROSEMIDE 40 MG/4 ML INJECTABLE VIAL IVPUSH SCH (15:59)
[2024-01-22] MEDS ORDERED: PANTOPRAZOLE SODIUM 40 MG VIAL ONE (18:22)
[2024-01-22] MEDS: PANTOPRAZOLE SODIUM 40 MG VIAL IVPUSH SCH (18:36)
[2024-01-22] MEDS: ATORVASTATIN CA 40 MG TABLET (FP) PO SCH (21:34)
[2024-01-22] MEDS: APIXABAN 5 MG TABLET PO SCH (21:34)
[2024-01-22] MEDS: CARVEDILOL 3.125 MG TABLET (FP) PO SCH (21:34)
[2024-01-22] MEDS ORDERED: CARVEDILOL PO SCH (22:00)
[2024-01-22] MEDS: ACETAMINOPHEN 325 MG TABLET (FP) PO PRN (22:10)
[2024-01-22 22:19] LABS: BILIRUBIN,DIRECT 0.4 mg/dL (0.0-0.2)
[2024-01-23] MEDS: ONDANSETRON 4 MG/2 ML VIAL IVPB PRN (05:30)
[2024-01-23] MEDS: oxyCODONE HCL 5 MG TABLET PO ONE (06:33)
[2024-01-23 07:52] LABS: BASO % 0.5 % (0-2.0); EOS % 1.2 % (0-4.5); HEMOGLOBIN 13.3 GM/dL (11.7-16.9); LYMPH % 6.1 % (8-40); MCH 30.7 pg (25.7-33.7); MCHC 33.2 g/dl (32.0-35.9); MEAN CELL VOLUME 92.4 fl (80-96); MEAN PLT VOLUME 8.1 fl (7.5-11.1); MONO % 5.3 % (3.8-10.2); NEUT % 86.9 % (42.8-82.8); PLATELET COUNT 206 10^3/uL (134-434); RBC 4.33 M/mm3 (4.00-5.60); RDW 16.3 % (11.9-15.9); WHITE BLOOD COUNT 11.1 K/mm3 (4.0-10.0)
[2024-01-23 08:06] LABS: POTASSIUM 3.5 mmol/L (3.5-5.1)
[2024-01-23 08:08] LABS: CALCIUM 9.3 mg/dL (8.5-10.1)
[2024-01-23 08:10] LABS: BLOOD UREA NITROGEN 25.8 mg/dL (7-18); MAGNESIUM 2.3 mg/dL (1.8-2.4)
[2024-01-23 08:13] LABS: CREATININE 1.4 mg/dL (0.55-1.3); PHOSPHOROUS 3.2 mg/dL (2.5-4.9)
[2024-01-23 08:14] LABS: BILIRUBIN,TOTAL 2.3 mg/dL (0.2-1)
[2024-01-23] MEDS ORDERED: PATIENT'S OWN MEDICATION (NON-FORMULARY) (Sertraline Hcl [Zoloft] 100 MG Tablet) PO SCH (10:00)
[2024-01-23] MEDS: SERTRALINE HCL 50 MG TABLET (FP) PO SCH (10:13)
[2024-01-23 10:23] VITALS: RESP 18
[2024-01-23] MEDS: MAG HYDROX/AL HYDROX/SIMETH 30 ML UNIT-DOSE CUP PO PRN (11:22)
[2024-01-23] MEDS: PRAMIPEXOLE DIHYDROCHLORIDE 0.5 MG TABLET PO SCH (21:37)
[2024-01-23] MEDS: SUCRALFATE 1 GM/10 ML UNIT DOSE CUPS PO SCH (23:15)
[2024-01-24] MEDS: clonazePAM 0.25 MG ODT TABLETS SL PRN (03:44)
[2024-01-24] MEDS: PRAMIPEXOLE DIHYDROCHLORIDE 0.25 MG TABLET PO SCH (05:33)
[2024-01-24 07:29] LABS: IRON SERUM 50 ug/dL (50-175); TOTAL IRON BINDING CAPACITY 354 ug/dL (250-450)
[2024-01-24 15:42] VITALS: BP 136/84; PULSE 69; TEMP 97.9
== END 2024-01-24 16:34 | disposition home or self-care (01) | DRG 291 ==
LOC: JER 04:08 → JERBED 10:12 → OBSVTOIN 11:46 → J4W 19:35
PROVIDERS: ADMIT Internal Medicine; ATTEND Internal Medicine
DX: I13.0 Hypertensive heart and chronic kidney disease with heart failure and stage 1 through stage 4 chronic kidney disease, or unspecified chronic kidney disease (principal); I50.31 Acute diastolic (congestive) heart failure; I48.91 Unspecified atrial fibrillation; E78.5 Hyperlipidemia, unspecified; Z79.01 Long term (current) use of anticoagulants; N40.0 Benign prostatic hyperplasia without lower urinary tract symptoms; F41.9 Anxiety disorder, unspecified; K76.89 Other specified diseases of liver; N18.9 Chronic kidney disease, unspecified; I87.2 Venous insufficiency (chronic) (peripheral); M48.07 Spinal stenosis, lumbosacral region; G20.A1 Parkinson's disease without dyskinesia, without mention of fluctuations
CPT/HCPCS: 0241U-QW; 36415; 71045-TC-FY; 74176-TC; 76705-TC; 80053; 81003; 82248; 83036; 83540; 83550; 83690; 83735; 83880; 84100; 84443; 84484; 85025; 85610; 85730; 86704; 86708; 86803; 86850; 86900; 86901; 87086; 87340; 87517; 93005; 93010; 93306-TC; 93970-TC; 94761; 97116-GP; 97161-GP; 99285-25; G0378; G0463-25; J0131

== ENCOUNTER 2024-07-08 16:54 | Observation (INO) | payer OTHER, BC ==
[2024-07-08] MEDS ORDERED: ACETAMINOPHEN 325 MG TABLET (FP) ONE (18:10)
[2024-07-08] MEDS: ACETAMINOPHEN 325 MG TABLET (FP) PO ONE (18:12)
[2024-07-08 18:15] LABS: BASO % 0.9 % (0-2.0); EOS % 2.1 % (0-4.5); HEMATOCRIT 36.3 % (35.4-49); HEMOGLOBIN 11.2 GM/dL (11.7-16.9); LYMPH % 9.2 % (8-40); MCH 26.9 pg (25.7-33.7); MCHC 30.8 g/dl (32.0-35.9); MEAN CELL VOLUME 87.1 fl (80-96); MEAN PLT VOLUME 7.5 fl (7.5-11.1); MONO % 7.2 % (3.8-10.2); NEUT % 80.6 % (42.8-82.8); PLATELET COUNT 255 10^3/uL (134-434); RBC 4.17 M/mm3 (4.00-5.60); RDW 17.6 % (11.9-15.9); WHITE BLOOD COUNT 7.3 K/mm3 (4.0-10.0)
[2024-07-08 18:22] LABS: INR 1.75 (0.83-1.09); PROTHROMBIN TIME (PATIENT) 19.1 SEC (9.7-13.0)
[2024-07-08 18:24] LABS: ACTIVATED PTT 37.2 SECONDS (25.2-36.5)
[2024-07-08 19:13] LABS: POTASSIUM 3.9 mmol/L (3.5-5.1)
[2024-07-08 19:15] LABS: ALBUMIN 3.7 g/dl (3.4-5.0); BLOOD UREA NITROGEN 46.1 mg/dL (7-18); CALCIUM 8.8 mg/dL (8.5-10.1)
[2024-07-08 19:19] LABS: CREATININE 1.9 mg/dL (0.55-1.3)
[2024-07-08 19:20] LABS: BILIRUBIN,TOTAL 0.7 mg/dL (0.2-1)
[2024-07-09] MEDS: ACETAMINOPHEN 325 MG TABLET (FP) PO PRN (06:53)
[2024-07-09] MEDS: PRAMIPEXOLE DIHYDROCHLORIDE 0.25 MG TABLET PO SCH ×2 (06:55→14:31)
[2024-07-09 08:21] LABS: BASO % 0.5 % (0-2.0); EOS % 1.7 % (0-4.5); HEMATOCRIT 34.5 % (35.4-49); HEMOGLOBIN 10.7 GM/dL (11.7-16.9); MEAN CELL VOLUME 86.9 fl (80-96); MEAN PLT VOLUME 7.8 fl (7.5-11.1); MONO % 7.6 % (3.8-10.2); NEUT % 81.2 % (42.8-82.8); PLATELET COUNT 240 10^3/uL (134-434); RBC 3.96 M/mm3 (4.00-5.60); RDW 17.3 % (11.9-15.9); WHITE BLOOD COUNT 8.8 K/mm3 (4.0-10.0)
[2024-07-09] MEDS: TORSEMIDE 20 MG TABLET (FP) PO SCH (08:54)
[2024-07-09] MEDS: PRAMIPEXOLE DIHYDROCHLORIDE 0.5 MG TABLET PO SCH (08:55)
[2024-07-09] MEDS: PANTOPRAZOLE 40 MG TABLET PO SCH (09:43)
[2024-07-09] MEDS: APIXABAN 2.5 MG TABLET PO SCH (09:43)
[2024-07-09] MEDS: CARVEDILOL 3.125 MG TABLET (FP) PO SCH (09:45)
[2024-07-09 11:15] LABS: ALBUMIN 3.8 g/dl (3.4-5.0); BILIRUBIN,TOTAL 0.8 mg/dL (0.2-1); BLOOD UREA NITROGEN 43.2 mg/dL (7-18); CALCIUM 9.3 mg/dL (8.5-10.1); CREATININE 1.9 mg/dL (0.55-1.3); MAGNESIUM 2.2 mg/dL (1.8-2.4); POTASSIUM 4.1 mmol/L (3.5-5.1); TOT PROT 6.7 g/dl (6.4-8.2)
[2024-07-09 12:49] VITALS: BMI 25.5
[2024-07-09] MEDS: DUTASTERIDE 0.5 MG CAP (FP) PO SCH (22:13)
[2024-07-09] MEDS: ATORVASTATIN CA 40 MG TABLET (FP) PO SCH (22:13)
[2024-07-09] MEDS: QUEtiapine FUMARATE 25 MG TABLET PO SCH (23:58)
[2024-07-10] MEDS ORDERED: QUEtiapine FUMARATE 25 MG TABLET PO SCH (10:00)
[2024-07-10 10:03] LABS: BASO % 0.6 % (0-2.0); EOS % 2.2 % (0-4.5); HEMATOCRIT 33.9 % (35.4-49); HEMOGLOBIN 10.8 GM/dL (11.7-16.9); LYMPH % 11.2 % (8-40); MCH 27.2 pg (25.7-33.7); MCHC 31.8 g/dl (32.0-35.9); MEAN CELL VOLUME 85.7 fl (80-96); MEAN PLT VOLUME 7.9 fl (7.5-11.1); MONO % 7.3 % (3.8-10.2); NEUT % 78.7 % (42.8-82.8); PLATELET COUNT 238 10^3/uL (134-434); RBC 3.96 M/mm3 (4.00-5.60); RDW 16.7 % (11.9-15.9); WHITE BLOOD COUNT 7.8 K/mm3 (4.0-10.0)
[2024-07-10 10:40] LABS: POTASSIUM 3.9 mmol/L (3.5-5.1)
[2024-07-10 10:42] LABS: CALCIUM 8.8 mg/dL (8.5-10.1)
[2024-07-10 10:43] LABS: ALBUMIN 3.7 g/dl (3.4-5.0); BLOOD UREA NITROGEN 39.6 mg/dL (7-18)
[2024-07-10 10:46] LABS: CREATININE 1.8 mg/dL (0.55-1.3)
[2024-07-10 10:47] LABS: BILIRUBIN,TOTAL 1.2 mg/dL (0.2-1)
[2024-07-10 15:56] VITALS: TEMP 97.7
[2024-07-10 18:16] VITALS: BP 135/65; PULSE 69; RESP 17
== END 2024-07-10 18:45 | disposition home health service (06) ==
LOC: JER 16:54 → JERBED 20:06 → INTOOBSV 20:06 → J4S 23:23
PROVIDERS: ADMIT Student in an Organized Health Care Education/Training Program; ATTEND Family Medicine
DX: R55 Syncope and collapse (principal); I44.2 Atrioventricular block, complete; I13.10 Hypertensive heart and chronic kidney disease without heart failure, with stage 1 through stage 4 chronic kidney disease, or unspecified chronic kidney disease; G20.A1 Parkinson's disease without dyskinesia, without mention of fluctuations; S00.83XA Contusion of other part of head, initial encounter; W18.39XA Other fall on same level, initial encounter; Y93.J1 Activity, piano playing; Y92.008 Other place in unspecified non-institutional (private) residence as the place of occurrence of the external cause; F41.9 Anxiety disorder, unspecified; I48.91 Unspecified atrial fibrillation; E78.5 Hyperlipidemia, unspecified; N40.0 Benign prostatic hyperplasia without lower urinary tract symptoms; R29.6 Repeated falls; Z79.01 Long term (current) use of anticoagulants; N18.9 Chronic kidney disease, unspecified
CPT/HCPCS: 36415; 70450-TC; 71045-TC-FY; 72125-TC; 72170-TC-FY; 76775-TC; 80053; 82728; 83540; 83550; 83735; 84443; 84484; 85025; 85610; 85730; 93005; 93010; 99285-25; G0378

== ENCOUNTER 2024-07-20 05:39 | Inpatient (IN) | payer OTHER, BC ==
[2024-07-20] MEDS ORDERED: MAG HYDROX/AL HYDROX/SIMETH 30 ML UNIT-DOSE CUP ONE ×2 (06:34→18:38)
[2024-07-20] MEDS: MAG HYDROX/AL HYDROX/SIMETH 30 ML UNIT-DOSE CUP PO ONE ×2 (06:40→18:38)
[2024-07-20] MEDS ORDERED: FAMOTIDINE 20 MG/50 ML IVPB 20 MG/50 ML MG IVPB ONE (08:15)
[2024-07-20] MEDS ORDERED: ACETAMINOPHEN INJECTION 100 ML ONE (08:15)
[2024-07-20 08:21] LABS: BASO % 0.2 % (0-2.0); HEMATOCRIT 34.3 % (35.4-49); HEMOGLOBIN 10.8 GM/dL (11.7-16.9); LYMPH % 8.6 % (8-40); MCH 26.8 pg (25.7-33.7); MCHC 31.5 g/dl (32.0-35.9); MEAN CELL VOLUME 85.1 fl (80-96); MONO % 13.8 % (3.8-10.2); NEUT % 77.4 % (42.8-82.8); PLATELET COUNT 135 10^3/uL (134-434); RBC 4.03 M/mm3 (4.00-5.60); RDW 17.3 % (11.9-15.9); WHITE BLOOD COUNT 6.5 K/mm3 (4.0-10.0)
[2024-07-20] MEDS: ACETAMINOPHEN 1000 MG/100 ML BAG IVPB ONE (08:29)
[2024-07-20] MEDS: FAMOTIDINE 20 MG/50 ML IVPB 20 MG/50 ML MG IVPB ONE (08:30)
[2024-07-20] MEDS: SODIUM CHLORIDE 0.9% 500 ML INFUS.BAG IV ONE (08:30)
[2024-07-20 08:37] LABS: INR 2.28 (0.83-1.09); PROTHROMBIN TIME (PATIENT) 24.9 SEC (9.7-13.0)
[2024-07-20 08:40] LABS: ACTIVATED PTT 35.9 SECONDS (25.2-36.5)
[2024-07-20 08:41] LABS: POTASSIUM 3.8 mmol/L (3.5-5.1)
[2024-07-20 08:43] LABS: ALBUMIN 3.7 g/dl (3.4-5.0); CALCIUM 8.8 mg/dL (8.5-10.1)
[2024-07-20 08:44] LABS: BLOOD UREA NITROGEN 49.1 mg/dL (7-18)
[2024-07-20 08:48] LABS: BILIRUBIN,TOTAL 1.4 mg/dL (0.2-1); TOT PROT 6.6 g/dl (6.4-8.2)
[2024-07-20 10:33] LABS: N-TERMINAL BNP 7527.6 pg/ml (5-450)
[2024-07-20] MEDS ORDERED: FUROSEMIDE 40 MG/4 ML INJECTABLE VIAL ONE (10:52)
[2024-07-20] MEDS: FUROSEMIDE 40 MG/4 ML INJECTABLE VIAL IVPUSH ONE ×2 (10:52→10:53)
[2024-07-20 11:57] LABS: HIV INTERPRETATION NEGATIVE (NEGATIVE)
[2024-07-20] MEDS: CEFTRIAXONE 1 G/50 ML PREMIX 50 ML IVPB ONE (12:37)
[2024-07-20] MEDS ORDERED: CEFTRIAXONE 1 G/50 ML PREMIX 50 ML IVPB ONE (12:40)
[2024-07-20] MEDS: REMDESIVIR 200 MG in SODIUM CHLORIDE 250 ML IVPB ONE (16:38)
[2024-07-20] MEDS ORDERED: CARBIDOPA/LEVODOPA 25/100 TABLET (FP) ONE (18:02)
[2024-07-20] MEDS: CARVEDILOL 3.125 MG TABLET (FP) PO SCH (21:38)
[2024-07-20] MEDS: ATORVASTATIN CA 40 MG TABLET (FP) PO SCH (21:39)
[2024-07-20] MEDS: QUEtiapine FUMARATE 25 MG TABLET PO SCH (21:39)
[2024-07-20] MEDS: APIXABAN 2.5 MG TABLET PO SCH (21:39)
[2024-07-20] MEDS ORDERED: APIXABAN 5 MG TABLET PO SCH (22:00)
[2024-07-20] MEDS: PRAMIPEXOLE DIHYDROCHLORIDE 1 MG TABLET PO SCH (22:28)
[2024-07-21] MEDS: PRAMIPEXOLE DIHYDROCHLORIDE 0.25 MG TABLET PO SCH (06:12)
[2024-07-21 08:18] LABS: BASO % 1.1 % (0-2.0); EOS % 0.1 % (0-4.5); LYMPH % 9.7 % (8-40); MCH 27.4 pg (25.7-33.7); MCHC 32.2 g/dl (32.0-35.9); MEAN CELL VOLUME 85.2 fl (80-96); MEAN PLT VOLUME 8.1 fl (7.5-11.1); MONO % 10.3 % (3.8-10.2); NEUT % 78.8 % (42.8-82.8); PLATELET COUNT 136 10^3/uL (134-434); RBC 3.64 M/mm3 (4.00-5.60); WHITE BLOOD COUNT 6.3 K/mm3 (4.0-10.0)
[2024-07-21 08:38] LABS: POTASSIUM 3.4 mmol/L (3.5-5.1)
[2024-07-21 08:43] LABS: ALBUMIN 3.2 g/dl (3.4-5.0); BLOOD UREA NITROGEN 46.9 mg/dL (7-18)
[2024-07-21 08:44] LABS: CALCIUM 8.1 mg/dL (8.5-10.1); MAGNESIUM 2.1 mg/dL (1.8-2.4)
[2024-07-21 08:45] LABS: BILIRUBIN,TOTAL 0.8 mg/dL (0.2-1)
[2024-07-21 08:46] LABS: PHOSPHOROUS 3.5 mg/dL (2.5-4.9); TOT PROT 6.1 g/dl (6.4-8.2)
[2024-07-21 09:07] LABS: CREATININE 1.6 mg/dL (0.55-1.3)
[2024-07-21] MEDS: FUROSEMIDE 40 MG/4 ML INJECTABLE VIAL IVPUSH SCH (10:33)
[2024-07-21] MEDS: SERTRALINE HCL 50 MG TABLET (FP) PO SCH (10:33)
[2024-07-21] MEDS: REMDESIVIR 100 MG in SODIUM CHLORIDE 250 ML IVPB SCH (15:41)
[2024-07-21] MEDS: POTASSIUM CHLORIDE ORAL LIQUID 20 MEQ/15 ML PO ONE (16:08)
[2024-07-21 18:16] VITALS: BMI 31.1
[2024-07-22 07:43] LABS: HEMATOCRIT 32.6 % (35.4-49); HEMOGLOBIN 10.3 GM/dL (11.7-16.9); MCH 27.1 pg (25.7-33.7); MCHC 31.5 g/dl (32.0-35.9); MEAN CELL VOLUME 85.9 fl (80-96); MEAN PLT VOLUME 8.1 fl (7.5-11.1); PLATELET COUNT 145 10^3/uL (134-434); RBC 3.79 M/mm3 (4.00-5.60); RDW 17.2 % (11.9-15.9); WHITE BLOOD COUNT 6.3 K/mm3 (4.0-10.0)
[2024-07-22 07:51] LABS: POTASSIUM 3.7 mmol/L (3.5-5.1)
[2024-07-22 07:56] LABS: CALCIUM 8.5 mg/dL (8.5-10.1); MAGNESIUM 2.1 mg/dL (1.8-2.4)
[2024-07-22 07:57] LABS: BLOOD UREA NITROGEN 40.4 mg/dL (7-18)
[2024-07-22 08:00] LABS: CREATININE 1.5 mg/dL (0.55-1.3)
[2024-07-22] MEDS: DEXAMETHASONE SOD PHOSPHATE 10 MG/1 ML VIAL IVPUSH SCH (11:48)
[2024-07-23 08:18] LABS: CHLORIDE 104 mmol/L (98-107); POTASSIUM 3.9 mmol/L (3.5-5.1); SODIUM 137 mmol/L (136-145)
[2024-07-23 08:25] LABS: CALCIUM 8.5 mg/dL (8.5-10.1); GLUCOSE,RANDOM 116 mg/dL (74-106)
[2024-07-23 08:26] LABS: ALBUMIN 3.5 g/dl (3.4-5.0); ANION GAP 6 mmol/L (4-13); BLOOD UREA NITROGEN 44.5 mg/dL (7-18); CO2 27 mmol/L (21-32)
[2024-07-23 08:28] LABS: CREATININE 1.6 mg/dL (0.55-1.3)
[2024-07-23 08:29] LABS: SGOT/AST 39 U/L (15-37); SGPT/ALT < 6 U/L (13-61)
[2024-07-23 08:30] LABS: TOT PROT 6.7 g/dl (6.4-8.2)
[2024-07-23 08:31] LABS: ALK PHOS 84 U/L (45-117)
[2024-07-23] MEDS: ALPRAZolam 1 MG TABLET PO PRN (12:02)
[2024-07-25] MEDS: LORazepam 2 MG/ML SDV VIAL IVPUSH PRN (04:48)
[2024-07-25] MEDS: HALOPERIDOL LACTATE 5 MG/ML IM ONE (06:59)
[2024-07-25] MEDS ORDERED: OLANZapine 2.5 MG TABLET PO PRN (10:56)
[2024-07-25 15:58] LABS: BASO % 0.8 % (0-2.0); HEMATOCRIT 34.6 % (35.4-49); HEMOGLOBIN 10.8 GM/dL (11.7-16.9); LYMPH % 3.9 % (8-40); MCH 26.9 pg (25.7-33.7); MCHC 31.3 g/dl (32.0-35.9); MEAN CELL VOLUME 86.1 fl (80-96); MONO % 5.6 % (3.8-10.2); NEUT % 89.7 % (42.8-82.8); PLATELET COUNT 177 10^3/uL (134-434); RBC 4.01 M/mm3 (4.00-5.60); RDW 17.7 % (11.9-15.9); WHITE BLOOD COUNT 11.6 K/mm3 (4.0-10.0)
[2024-07-25] MEDS ORDERED: QUEtiapine FUMARATE 25 MG TABLET PO SCH (16:17)
[2024-07-25 16:22] LABS: POTASSIUM 3.7 mmol/L (3.5-5.1)
[2024-07-25 16:26] LABS: ALBUMIN 3.5 g/dl (3.4-5.0); BLOOD UREA NITROGEN 46.9 mg/dL (7-18)
[2024-07-25 16:29] LABS: CREATININE 1.6 mg/dL (0.55-1.3)
[2024-07-25 16:31] LABS: BILIRUBIN,TOTAL 1.5 mg/dL (0.2-1); TOT PROT 6.3 g/dl (6.4-8.2)
[2024-07-25] MEDS: FUROSEMIDE 40 MG TABLET (FP) PO SCH (18:28)
[2024-07-26] MEDS: QUEtiapine FUMARATE 25 MG TABLET PO PRN (04:35)
[2024-07-26] MEDS: DEXAMETHASONE SOD PHOSPHATE 4 MG/1 ML VIAL IVPUSH SCH (09:28)
[2024-07-26] MEDS: ACETAMINOPHEN 1000 MG/100 ML BAG IVPB PRN (12:06)
[2024-07-27 08:06] LABS: BASO % 0.5 % (0-2.0); EOS % 0.9 % (0-4.5); HEMATOCRIT 34.2 % (35.4-49); HEMOGLOBIN 11.2 GM/dL (11.7-16.9); LYMPH % 9.5 % (8-40); MCH 27.8 pg (25.7-33.7); MCHC 32.8 g/dl (32.0-35.9); MEAN CELL VOLUME 84.8 fl (80-96); MEAN PLT VOLUME 7.9 fl (7.5-11.1); MONO % 5.6 % (3.8-10.2); NEUT % 83.5 % (42.8-82.8); PLATELET COUNT 204 10^3/uL (134-434); RBC 4.03 M/mm3 (4.00-5.60); RDW 17.5 % (11.9-15.9); WHITE BLOOD COUNT 10.7 K/mm3 (4.0-10.0)
[2024-07-27 08:22] LABS: POTASSIUM 3.7 mmol/L (3.5-5.1)
[2024-07-27 08:31] LABS: CALCIUM 9.1 mg/dL (8.5-10.1)
[2024-07-27 08:32] LABS: ALBUMIN 3.5 g/dl (3.4-5.0)
[2024-07-27 08:34] LABS: CREATININE 1.5 mg/dL (0.55-1.3)
[2024-07-27 08:36] LABS: BILIRUBIN,TOTAL 1.9 mg/dL (0.2-1); TOT PROT 6.3 g/dl (6.4-8.2)
[2024-07-27] MEDS: BENZONATATE 200 MG CAPSULE PO PRN (23:44)
[2024-07-28] MEDS: ACETAMINOPHEN 1000 MG/100 ML BAG IVPB ONE (00:42)
[2024-07-28] MEDS: ALPRAZolam 1 MG TABLET PO PRN (04:22)
[2024-07-28 08:06] VITALS: PULSE 69
[2024-07-29] MEDS: guaiFENesin/CODEINE 5 ML UNIT-DOSE CUPS PO ONE (00:17)
[2024-07-29] MEDS: FUROSEMIDE 40 MG/4 ML INJECTABLE VIAL IVPUSH ONE (09:41)
[2024-07-29 14:35] VITALS: BP 124/70; RESP 18; TEMP 97.9
[2024-07-30] MEDS ORDERED: FUROSEMIDE 40 MG TABLET (FP) PO SCH (10:00)
== END 2024-07-29 16:32 | DRG 177 ==
LOC: JER 05:39 → JERBED 10:25 → J7W 20:56
PROVIDERS: ADMIT Internal Medicine; ATTEND Internal Medicine
PROC: XW033E5 Introduction of Remdesivir Anti-infective into Peripheral Vein, Percutaneous Approach, New Technology Group 5 (ICD-10-PCS; principal; 2024-07-20)
DX: U07.1 COVID-19 (principal); G93.41 Metabolic encephalopathy; I50.23 Acute on chronic systolic (congestive) heart failure; J15.9 Unspecified bacterial pneumonia; I13.0 Hypertensive heart and chronic kidney disease with heart failure and stage 1 through stage 4 chronic kidney disease, or unspecified chronic kidney disease; L97.829 Non-pressure chronic ulcer of other part of left lower leg with unspecified severity; N17.9 Acute kidney failure, unspecified; R44.3 Hallucinations, unspecified; I27.20 Pulmonary hypertension, unspecified; G20.A1 Parkinson's disease without dyskinesia, without mention of fluctuations; N18.9 Chronic kidney disease, unspecified; E78.5 Hyperlipidemia, unspecified; I25.10 Atherosclerotic heart disease of native coronary artery without angina pectoris; I48.0 Paroxysmal atrial fibrillation; I44.30 Unspecified atrioventricular block; F41.9 Anxiety disorder, unspecified; I87.2 Venous insufficiency (chronic) (peripheral); N40.0 Benign prostatic hyperplasia without lower urinary tract symptoms; D64.9 Anemia, unspecified; R62.7 Adult failure to thrive
CPT/HCPCS: 0241U-QW; 36415; 70450-TC; 71045-TC-FY; 80048; 80053; 82550; 82553; 82962; 83036; 83735; 83880; 84100; 84443; 84484; 85025; 85027; 85610; 85730; 86140; 86803; 87040; 87389; 87899; 93005; 93010; 93306-TC; 97116-GP; 97162-GP; 99285-25; J0131; J0248; J1100

== ENCOUNTER 2024-12-13 11:09 | Day surgery (SDC) | payer OTHER, BC ==
[2024-12-13] MEDS: IRON SUCROSE INJECTION 200 MG in SODIUM CHLORIDE 100 ML IVPB ONE (11:42)
[2024-12-13 16:24] VITALS: BP 115/80; PULSE 78; RESP 18; TEMP 97.9
== END 2024-12-13 13:15 | disposition home or self-care (01) ==
LOC: FM/S 11:09 → FINFUSION 11:09
PROVIDERS: ATTEND Family Medicine
PROC: 3E033GC Introduction of Other Therapeutic Substance into Peripheral Vein, Percutaneous Approach (ICD-10-PCS; principal; 2024-12-13)
DX: D50.9 Iron deficiency anemia, unspecified (principal)
CPT/HCPCS: 96365; J1756

== ENCOUNTER 2024-12-28 12:56 | Inpatient (IN) | payer OTHER, BC ==
[2024-12-28] MEDS ORDERED: ACETAMINOPHEN INJECTION 100 ML ONE (13:38)
[2024-12-28] MEDS ORDERED: PIPERACILLIN/TAZOB 3.375 GM 3.375 GM/50 ML BAG IVPB ONE (13:39)
[2024-12-28 13:57] LABS: ABSOLUTE IMMATURE GRANULOCYTES 0.08 x10^3/uL (0.0-0.031); BASOPHILS # 0.03 x10^3/uL (0.01-0.08); EOSINOPHIL % 0.2 % (0.8-7.0); EOSINOPHILS # 0.02 x10^3/uL (0.04-0.54); MCHC 26.9 g/dl (32.3-36.5); MEAN CELL VOLUME 82.7 fl (79.0-92.2); MEAN PLT VOLUME 10.0 fl (9.4-12.4); MONOCYTE # 1.17 x10^3/uL (0.30-0.82); MONOCYTE % 10.4 % (5.3-12.2); RDW 26.2 % (12.6-16.6)
[2024-12-28 13:59] LABS: BG HCT 33.0 % (35.4-49); VENOUS BASE EXCESS 1.1 mmol/L (-2-2); VENOUS O2 SATURATION 54.6 % (70-80); VENOUS PCO2 37.8 mmHg (38-52); VENOUS PH 7.44 (7.310-7.410)
[2024-12-28 14:04] LABS: INR 2.84 (0.83-1.09); PROTHROMBIN TIME (PATIENT) 31.0 SEC (9.7-13.0)
[2024-12-28 14:07] LABS: ACTIVATED PTT 36.1 SECONDS (25.2-36.5)
[2024-12-28] MEDS: PIPERACILLIN/TAZOB 3.375 GM 3.375 GM in DEXTROSE 5%-WATER - 50 ML IVPB ONE (14:07)
[2024-12-28 14:21] LABS: EPI CELLS 30 /uL (0-25.1); HYALINE CASTS 0 /uL (0-3.1); URINE APPEARANCE CLEAR; URINE BACTERIA 4 /uL (0-1359); URINE BILIRUBIN NEGATIVE (NEGATIVE); URINE COLOR YELLOW; URINE GLUCOSE (UA) NEGATIVE (NEGATIVE); URINE KETONE NEGATIVE (NEGATIVE); URINE LEUK ESTERASE TRACE (NEGATIVE); URINE NITRITE NEGATIVE (NEGATIVE); URINE PROTEIN TRACE (NEGATIVE); URINE RBC 127 /uL (0-23.9); URINE UROBILINOGEN 1.0 mg/dL (0.2-1.0); URINE WBC 14 /uL (0-25.8)
[2024-12-28 14:23] LABS: GLUCOSE,RANDOM 100 mg/dL (74-106); TOT PROT 7.1 g/dl (6.4-8.2)
[2024-12-28 14:24] LABS: CO2 24 mmol/L (21-32)
[2024-12-28 14:27] LABS: LACTIC ACID 2.7 mmol/L (0.4-2.0)
[2024-12-28] MEDS: ACETAMINOPHEN 1000 MG/100 ML BAG IVPB ONE ×2 (14:27→22:52)
[2024-12-28] MEDS: LACTATED RINGERS SOLUTION 1000 ML INFUS.BAG IV ONE (14:27)
[2024-12-28 14:29] LABS: CREATININE 2.35 mg/dL (0.55-1.3); SGOT/AST 61 U/L (5-34)
[2024-12-28 14:33] LABS: ALK PHOS 110 U/L (40-150); SGPT/ALT < 6 U/L (0-55)
[2024-12-28] MEDS: INSULIN REGULAR HUMAN 100 UNITS/ML *VIAL IVPUSH ONE ×3 (14:42→18:46)
[2024-12-28] MEDS ORDERED: DEXTROSE 50%-WATER 25 GM/50 ML DISP.SYRIN ONE ×2 (14:47→18:29)
[2024-12-28] MEDS ORDERED: CALCIUM GLUC IN NACL, ISO-OSM 1 GM/50 ML BAG IVPB ONE (14:47)
[2024-12-28] MEDS ORDERED: INSULIN REGULAR HUMAN 100 UNITS/ML *VIAL ONE ×2 (14:48→18:30)
[2024-12-28] MEDS: CALCIUM GLUC IN NACL, ISO-OSM 1 GM/50 ML BAG IVPB ONE (14:55)
[2024-12-28] MEDS: DEXTROSE 50%-WATER - 25 GM/50 ML VIAL IVPUSH ONE ×2 (14:56→18:46)
[2024-12-28] MEDS ORDERED: VANCOMYCIN 1 GM PREMIX (F) 1 GM/200 ML BAG ONE (16:30)
[2024-12-28] MEDS: VANCOMYCIN 1,000 MG in DEXTROSE 5%-WATER - 250 ML IVPB ONE (16:42)
[2024-12-28] MEDS: SODIUM ZIRCONIUM CYCLOSILICATE (LOKELMA) 5 GM PACKET PO ONE (16:53)
[2024-12-28 17:14] LABS: GLUCOSE,RANDOM 97.0 mg/dL (74-106); TOT PROT 6.7 g/dl (6.4-8.2)
[2024-12-28 17:15] LABS: CO2 21.0 mmol/L (21-32)
[2024-12-28 17:17] LABS: ALK PHOS 102.0 U/L (40-150)
[2024-12-28 17:19] LABS: LACTIC ACID 2.6 mmol/L (0.4-2.0)
[2024-12-28 17:20] LABS: CREATININE 2.39 mg/dL (0.55-1.3); SGOT/AST 61.0 U/L (5-34); SGPT/ALT 8.0 U/L (0-55)
[2024-12-28] MEDS ORDERED: DEXTROSE 50%-WATER - 25 GM/50 ML VIAL IVPUSH PRN ×2 (18:20→18:25)
[2024-12-28 21:24] LABS: GLUCOSE,RANDOM 103.0 mg/dL (74-106); TOT PROT 6.5 g/dl (6.4-8.2)
[2024-12-28 21:25] LABS: CO2 26.0 mmol/L (21-32)
[2024-12-28 21:27] LABS: ALK PHOS 98.0 U/L (40-150)
[2024-12-28 21:30] LABS: CREATININE 2.42 mg/dL (0.55-1.3); SGOT/AST 63.0 U/L (5-34); SGPT/ALT 9.0 U/L (0-55)
[2024-12-28] MEDS: PIPERACILLIN/TAZOB 2.25 GM 2.25 GM in DEXTROSE 5%-WATER - 50 ML IVPB SCH (23:21)
[2024-12-29] MEDS: SODIUM CHLORIDE 0.45% 1,000 ML IV SCH (02:57)
[2024-12-29 07:09] LABS: MCHC 27.0 g/dl (32.3-36.5); MEAN CELL VOLUME 82.0 fl (79.0-92.2); MEAN PLT VOLUME 9.6 fl (9.4-12.4); RDW 26.1 % (12.6-16.6)
[2024-12-29 07:26] LABS: GLUCOSE,RANDOM 84.0 mg/dL (74-106)
[2024-12-29 07:27] LABS: TOT PROT 6.2 g/dl (6.4-8.2)
[2024-12-29 07:28] LABS: CO2 25.0 mmol/L (21-32)
[2024-12-29 07:29] LABS: ALK PHOS 94.0 U/L (40-150)
[2024-12-29 07:32] LABS: CREATININE 2.49 mg/dL (0.55-1.3); SGOT/AST 61.0 U/L (5-34); SGPT/ALT 9.0 U/L (0-55)
[2024-12-29] MEDS: PHYTONADIONE 10 MG/1 ML AMP IM ONE (11:44)
[2024-12-29] MEDS ORDERED: VANCOMYCIN PREMIX 1.5 GM 1,500 MG/300 ML BAG IVPB SCH (15:00)
[2024-12-29] MEDS ORDERED: VANCOMYCIN HCL 1,500 MG in DEXTROSE 5%-WATER - 500 ML IVPB SCH (16:00)
[2024-12-29 17:03] LABS: IRON SERUM 35.0 ug/dL (50-175)
[2024-12-29] MEDS: CARBIDOPA/LEVODOPA 25/250 TABLET (FP) PO SCH (18:22)
[2024-12-29] MEDS: PIPERACILLIN/TAZOB 2.25 GM 2.25 GM in DEXTROSE 5%-WATER - 50 ML IVPB SCH (18:23)
[2024-12-30 06:52] LABS: ABSOLUTE IMMATURE GRANULOCYTES 0.06 x10^3/uL (0.0-0.031); BASOPHILS # 0.04 x10^3/uL (0.01-0.08); EOSINOPHIL % 2.9 % (0.8-7.0); EOSINOPHILS # 0.31 x10^3/uL (0.04-0.54); MCHC 26.2 g/dl (32.3-36.5); MEAN CELL VOLUME 84.1 fl (79.0-92.2); MEAN PLT VOLUME 9.5 fl (9.4-12.4); MONOCYTE # 0.89 x10^3/uL (0.30-0.82); MONOCYTE % 8.3 % (5.3-12.2); RDW 26.2 % (12.6-16.6)
[2024-12-30 06:54] LABS: INR 1.74 (0.83-1.09); PROTHROMBIN TIME (PATIENT) 19.1 SEC (9.7-13.0)
[2024-12-30 06:57] LABS: ACTIVATED PTT 32.2 SECONDS (25.2-36.5)
[2024-12-30 07:02] LABS: GLUCOSE,RANDOM 76.0 mg/dL (74-106); TOT PROT 5.7 g/dl (6.4-8.2)
[2024-12-30 07:03] LABS: CO2 26.0 mmol/L (21-32)
[2024-12-30 07:08] LABS: SGOT/AST 49.0 U/L (5-34); SGPT/ALT 12.0 U/L (0-55)
[2024-12-30 07:24] LABS: CREATININE 2.14 mg/dL (0.55-1.3)
[2024-12-30 07:46] LABS: ALK PHOS 81.0 U/L (40-150)
[2024-12-30] MEDS: ACETAMINOPHEN 1000 MG/100 ML BAG IVPB PRN (13:35)
[2024-12-30 16:37] LABS: LDL CHOLESTEROL (ONLY SJRH) 54.0 mg/dL (5-100)
[2024-12-30 16:45] LABS: N-TERMINAL BNP 8430.4 pg/mL (0-299.9)
[2024-12-30] MEDS ORDERED: PIPERACILLIN/TAZOB 2.25 GM 2.25 GM in DEXTROSE 5%-WATER - 50 ML IVPB SCH (21:00)
[2024-12-31 07:03] LABS: ABSOLUTE IMMATURE GRANULOCYTES 0.05 x10^3/uL (0.0-0.031); BASOPHILS # 0.05 x10^3/uL (0.01-0.08); EOSINOPHIL % 4.3 % (0.8-7.0); EOSINOPHILS # 0.42 x10^3/uL (0.04-0.54); MCHC 26.7 g/dl (32.3-36.5); MEAN CELL VOLUME 83.7 fl (79.0-92.2); MEAN PLT VOLUME 9.7 fl (9.4-12.4); MONOCYTE # 0.84 x10^3/uL (0.30-0.82); MONOCYTE % 8.5 % (5.3-12.2); RDW 26.2 % (12.6-16.6)
[2024-12-31 07:51] LABS: GLUCOSE,RANDOM 79.0 mg/dL (74-106); TOT PROT 5.6 g/dl (6.4-8.2)
[2024-12-31 07:52] LABS: CO2 24.0 mmol/L (21-32)
[2024-12-31 07:54] LABS: ALK PHOS 76.0 U/L (40-150)
[2024-12-31 07:56] LABS: SGPT/ALT 10.0 U/L (0-55)
[2024-12-31 07:57] LABS: CREATININE 1.73 mg/dL (0.55-1.3); SGOT/AST 44.0 U/L (5-34)
[2024-12-31 08:45] LABS: INR 1.51 (0.83-1.09); PROTHROMBIN TIME (PATIENT) 16.6 SEC (9.7-13.0)
[2024-12-31] MEDS ORDERED: FENTANYL CITRATE/PF 50 MCG/ML VIAL ONE (13:17)
[2024-12-31] MEDS: SODIUM CHLORIDE 500 ML IV SCH (13:25)
[2024-12-31] MEDS: FENTANYL CITRATE/PF 50 MCG/ML VIAL IVPUSH ONE (13:30)
[2024-12-31] MEDS: HALOPERIDOL LACTATE 5 MG/ML IM ONE (23:33)
[2025-01-01] MEDS: HALOPERIDOL LACTATE 5 MG/ML IM ONE (00:49)
[2025-01-01 07:52] LABS: MCHC 27.6 g/dl (32.3-36.5); MEAN CELL VOLUME 83.4 fl (79.0-92.2); MEAN PLT VOLUME 9.7 fl (9.4-12.4); RDW 26.5 % (12.6-16.6)
[2025-01-01 08:12] LABS: GLUCOSE,RANDOM 94.0 mg/dL (74-106)
[2025-01-01 08:13] LABS: TOT PROT 5.6 g/dl (6.4-8.2)
[2025-01-01 08:14] LABS: CO2 24.0 mmol/L (21-32)
[2025-01-01 08:16] LABS: ALK PHOS 72.0 U/L (40-150)
[2025-01-01 08:18] LABS: CREATININE 1.63 mg/dL (0.55-1.3); SGOT/AST 42.0 U/L (5-34); SGPT/ALT 15.0 U/L (0-55)
[2025-01-01] MEDS: SODIUM CHLORIDE 0.45% 1,000 ML IV SCH (11:16)
[2025-01-02 06:57] LABS: ABSOLUTE IMMATURE GRANULOCYTES 0.05 x10^3/uL (0.0-0.031); BASOPHILS # 0.05 x10^3/uL (0.01-0.08); EOSINOPHIL % 3.0 % (0.8-7.0); EOSINOPHILS # 0.28 x10^3/uL (0.04-0.54); MCHC 27.0 g/dl (32.3-36.5); MEAN CELL VOLUME 83.2 fl (79.0-92.2); MEAN PLT VOLUME 9.7 fl (9.4-12.4); MONOCYTE # 0.72 x10^3/uL (0.30-0.82); MONOCYTE % 7.7 % (5.3-12.2); RDW 26.9 % (12.6-16.6)
[2025-01-02 07:37] LABS: GLUCOSE,RANDOM 95 mg/dL (74-106); TOT PROT 5.9 g/dl (6.4-8.2)
[2025-01-02 07:38] LABS: CO2 23 mmol/L (21-32)
[2025-01-02 07:40] LABS: ALK PHOS 74 U/L (40-150)
[2025-01-02 07:42] LABS: SGPT/ALT < 6 U/L (0-55)
[2025-01-02 07:43] LABS: CREATININE 1.36 mg/dL (0.55-1.3); IRON SERUM 30 ug/dL (50-175); SGOT/AST 35 U/L (5-34)
[2025-01-02] MEDS: IRON SUCROSE INJECTION 200 MG in SODIUM CHLORIDE 100 ML IVPB ONE (10:31)
[2025-01-02 15:58] VITALS: BMI 26.9
[2025-01-02] MEDS: AMINO ACIDS/PROTEIN HYDROLYS 30 ML LIQUID.PKT PO SCH (17:34)
[2025-01-02] MEDS: APIXABAN 2.5 MG TABLET PO SCH (21:35)
[2025-01-03 06:53] LABS: ABSOLUTE IMMATURE GRANULOCYTES 0.04 x10^3/uL (0.0-0.031); BASOPHILS # 0.07 x10^3/uL (0.01-0.08); EOSINOPHIL % 3.1 % (0.8-7.0); EOSINOPHILS # 0.35 x10^3/uL (0.04-0.54); MCHC 27.1 g/dl (32.3-36.5); MEAN CELL VOLUME 84.0 fl (79.0-92.2); MEAN PLT VOLUME 8.9 fl (9.4-12.4); MONOCYTE # 0.79 x10^3/uL (0.30-0.82); MONOCYTE % 6.9 % (5.3-12.2); RDW 27.0 % (12.6-16.6)
[2025-01-03 07:10] LABS: GLUCOSE,RANDOM 95 mg/dL (74-106); TOT PROT 5.8 g/dl (6.4-8.2)
[2025-01-03 07:11] LABS: CO2 24 mmol/L (21-32)
[2025-01-03 07:13] LABS: ALK PHOS 72 U/L (40-150)
[2025-01-03 07:15] LABS: SGOT/AST 29 U/L (5-34)
[2025-01-03 07:16] LABS: CREATININE 1.20 mg/dL (0.55-1.3)
[2025-01-03 07:22] LABS: SGPT/ALT < 6 U/L (0-55)
[2025-01-03] MEDS: ASCORBIC ACID 500 MG TABLET (FP) PO SCH (10:23)
[2025-01-03] MEDS: ZINC SULFATE 220 MG CAPSULE (FP) PO SCH (10:23)
[2025-01-03] MEDS: IRON SUCROSE INJECTION 200 MG in SODIUM CHLORIDE 100 ML IVPB ONE (11:48)
[2025-01-04 07:06] LABS: ABSOLUTE IMMATURE GRANULOCYTES 0.05 x10^3/uL (0.0-0.031); BASOPHILS # 0.05 x10^3/uL (0.01-0.08); EOSINOPHIL % 4.9 % (0.8-7.0); EOSINOPHILS # 0.46 x10^3/uL (0.04-0.54); MCHC 27.0 g/dl (32.3-36.5); MEAN CELL VOLUME 84.1 fl (79.0-92.2); MEAN PLT VOLUME 9.4 fl (9.4-12.4); MONOCYTE # 0.73 x10^3/uL (0.30-0.82); MONOCYTE % 7.7 % (5.3-12.2); RDW 27.6 % (12.6-16.6)
[2025-01-04 07:27] LABS: TOT PROT 5.7 g/dl (6.4-8.2)
[2025-01-04 07:28] LABS: CO2 24 mmol/L (21-32)
[2025-01-04 07:29] LABS: ALK PHOS 72 U/L (40-150)
[2025-01-04 07:32] LABS: CREATININE 1.14 mg/dL (0.55-1.3); SGOT/AST 27 U/L (5-34)
[2025-01-04 07:37] LABS: GLUCOSE,RANDOM 88 mg/dL (74-106); SGPT/ALT < 6 U/L (0-55)
[2025-01-04] MEDS: MELATONIN 1 MG TABLET PO SCH (22:26)
[2025-01-05 07:05] LABS: ABSOLUTE IMMATURE GRANULOCYTES 0.03 x10^3/uL (0.0-0.031); BASOPHILS # 0.08 x10^3/uL (0.01-0.08); EOSINOPHIL % 3.0 % (0.8-7.0); EOSINOPHILS # 0.30 x10^3/uL (0.04-0.54); MCHC 27.4 g/dl (32.3-36.5); MEAN CELL VOLUME 83.3 fl (79.0-92.2); MEAN PLT VOLUME 9.5 fl (9.4-12.4); MONOCYTE # 0.79 x10^3/uL (0.30-0.82); MONOCYTE % 7.9 % (5.3-12.2); RDW 28.1 % (12.6-16.6)
[2025-01-05 07:18] LABS: TOT PROT 6.2 g/dl (6.4-8.2)
[2025-01-05 07:19] LABS: CO2 19 mmol/L (21-32)
[2025-01-05 07:23] LABS: SGOT/AST 33 U/L (5-34)
[2025-01-05 07:24] LABS: CREATININE 1.03 mg/dL (0.55-1.3)
[2025-01-05 07:31] LABS: ALK PHOS 88 U/L (40-150); GLUCOSE,RANDOM 95 mg/dL (74-106); SGPT/ALT < 6 U/L (0-55)
[2025-01-05] MEDS: APIXABAN 2.5 MG TABLET PO SCH (09:41)
[2025-01-06] MEDS ORDERED: MELATONIN 1 MG TABLET PO SCH (02:42)
[2025-01-06] MEDS: ACETAMINOPHEN 1000 MG/100 ML BAG IVPB PRN (02:50)
[2025-01-06] MEDS: MELATONIN 1 MG TABLET PO ONE (02:50)
[2025-01-06] MEDS: FUROSEMIDE 40 MG/4 ML INJECTABLE VIAL IVPUSH ONE (11:23)
[2025-01-07] MEDS: FUROSEMIDE 40 MG/4 ML INJECTABLE VIAL IVPUSH ONE (12:36)
[2025-01-07] MEDS: CLOTRIMAZOLE 1% CREAM TP SCH (12:36)
[2025-01-08 06:55] LABS: ABSOLUTE IMMATURE GRANULOCYTES 0.04 x10^3/uL (0.0-0.031); BASOPHILS # 0.08 x10^3/uL (0.01-0.08); EOSINOPHIL % 4.3 % (0.8-7.0); EOSINOPHILS # 0.36 x10^3/uL (0.04-0.54); MCHC 27.5 g/dl (32.3-36.5); MEAN CELL VOLUME 84.5 fl (79.0-92.2); MEAN PLT VOLUME 9.3 fl (9.4-12.4); MONOCYTE # 0.74 x10^3/uL (0.30-0.82); MONOCYTE % 8.9 % (5.3-12.2); RDW 28.9 % (12.6-16.6)
[2025-01-08 07:15] LABS: INR 1.65 (0.83-1.09); PROTHROMBIN TIME (PATIENT) 18.0 SEC (9.7-13.0)
[2025-01-08 07:18] LABS: ACTIVATED PTT 35.0 SECONDS (25.2-36.5)
[2025-01-08 07:24] LABS: GLUCOSE,RANDOM 97 mg/dL (74-106); TOT PROT 6.8 g/dl (6.4-8.2)
[2025-01-08 07:25] LABS: CO2 24 mmol/L (21-32)
[2025-01-08 07:29] LABS: SGOT/AST 32 U/L (5-34); SGPT/ALT < 6 U/L (0-55)
[2025-01-08 07:30] LABS: CREATININE 1.12 mg/dL (0.55-1.3)
[2025-01-08 07:31] LABS: ALK PHOS 126 U/L (40-150)
[2025-01-08] MEDS: ENOXAPARIN NA (PORCINE) 100 MG/1 ML DISP.SYRIN SQ SCH (12:05)
[2025-01-08] MEDS: FUROSEMIDE 40 MG/4 ML INJECTABLE VIAL IVPUSH ONE (12:06)
[2025-01-09 06:54] LABS: MCHC 27.7 g/dl (32.3-36.5); MEAN CELL VOLUME 83.3 fl (79.0-92.2); MEAN PLT VOLUME 9.4 fl (9.4-12.4); RDW 28.8 % (12.6-16.6)
[2025-01-09 08:21] LABS: GLUCOSE,RANDOM 79.0 mg/dL (74-106)
[2025-01-09 08:22] LABS: TOT PROT 6.5 g/dl (6.4-8.2)
[2025-01-09 08:23] LABS: CO2 26.0 mmol/L (21-32)
[2025-01-09 08:27] LABS: CREATININE 1.13 mg/dL (0.55-1.3); SGOT/AST 29.0 U/L (5-34); SGPT/ALT 7.0 U/L (0-55)
[2025-01-09 09:14] LABS: ALK PHOS 117.0 U/L (40-150)
[2025-01-09] MEDS: TORSEMIDE 20 MG TABLET (FP) PO SCH (14:47)
[2025-01-11 09:15] LABS: MCHC 27.8 g/dl (32.3-36.5); MEAN CELL VOLUME 84.9 fl (79.0-92.2); MEAN PLT VOLUME 8.9 fl (9.4-12.4); RDW 29.1 % (12.6-16.6)
[2025-01-11 09:23] LABS: INR 1.29 (0.83-1.09); PROTHROMBIN TIME (PATIENT) 14.1 SEC (9.7-13.0)
[2025-01-11 09:26] LABS: ACTIVATED PTT 29.4 SECONDS (25.2-36.5)
[2025-01-11 09:38] LABS: GLUCOSE,RANDOM 87.0 mg/dL (74-106)
[2025-01-11 09:39] LABS: CO2 24.0 mmol/L (21-32)
[2025-01-11 09:43] LABS: CREATININE 0.97 mg/dL (0.55-1.3)
[2025-01-11] MEDS ORDERED: PROPOFOL 60 ML ONE (11:04)
[2025-01-11] MEDS ORDERED: HEPARIN NA (PORCINE) 5,000 UNITS/ML 1ML VIAL IVPUSH PRN ×2 (22:34)
[2025-01-11] MEDS ORDERED: HEPARIN INFUSION - 25,000 UNITS/500 ML INFUS.BAG IVPB SCH (22:45)
[2025-01-12 06:45] LABS: ABSOLUTE IMMATURE GRANULOCYTES 0.04 x10^3/uL (0.0-0.031); BASOPHILS # 0.09 x10^3/uL (0.01-0.08); EOSINOPHIL % 2.0 % (0.8-7.0); EOSINOPHILS # 0.16 x10^3/uL (0.04-0.54); MCHC 28.2 g/dl (32.3-36.5); MEAN CELL VOLUME 84.2 fl (79.0-92.2); MEAN PLT VOLUME 9.5 fl (9.4-12.4); MONOCYTE # 0.56 x10^3/uL (0.30-0.82); MONOCYTE % 6.9 % (5.3-12.2); RDW 29.1 % (12.6-16.6)
[2025-01-12 07:24] LABS: GLUCOSE,RANDOM 96.0 mg/dL (74-106)
[2025-01-12 07:25] LABS: CO2 24.0 mmol/L (21-32)
[2025-01-12 07:29] LABS: CREATININE 1.02 mg/dL (0.55-1.3)
[2025-01-12] MEDS ORDERED: ONDANSETRON 4 MG/2 ML VIAL IVPUSH PRN ×3 (09:43→11:58)
[2025-01-12] MEDS ORDERED: LACTATED RINGERS SOLUTION 1,000 ML IV SCH (10:00)
[2025-01-12] MEDS ORDERED: BUPIVACAINE HCL/PF 0.5% (5MG/ML) 10 ML VIAL ONE (10:02)
[2025-01-12] MEDS ORDERED: ACETAMINOPHEN INJECTION 100 ML ONE (10:02)
[2025-01-12] MEDS ORDERED: MIDAZOLAM HCL 2 MG/2 ML SINGLE DOSE VIAL ONE ×2 (10:06→11:03)
[2025-01-12] MEDS: ACETAMINOPHEN 1000 MG/100 ML BAG IVPB SCH (14:31)
[2025-01-12] MEDS: CARBIDOPA/LEVODOPA 25/250 TABLET (FP) PO SCH (14:32)
[2025-01-12] MEDS: CEFAZOLIN SODIUM 2 GM in DEXTROSE 5%-WATER 100 ML IVPB SCH (18:14)
[2025-01-12] MEDS: AMINO ACIDS/PROTEIN HYDROLYS 30 ML LIQUID.PKT PO SCH (18:14)
[2025-01-12] MEDS: MELATONIN 1 MG TABLET PO SCH (21:22)
[2025-01-12] MEDS: CLOTRIMAZOLE 1% CREAM TP SCH (22:02)
[2025-01-12] MEDS: morphine CARPU-JECT 2 MG/1 ML DISP.SYRIN IVPUSH ONE (23:54)
[2025-01-13 08:37] LABS: ABSOLUTE IMMATURE GRANULOCYTES 0.08 x10^3/uL (0.0-0.031); BASOPHILS # 0.10 x10^3/uL (0.01-0.08); EOSINOPHIL % 0.5 % (0.8-7.0); EOSINOPHILS # 0.08 x10^3/uL (0.04-0.54); MCHC 28.7 g/dl (32.3-36.5); MEAN CELL VOLUME 84.6 fl (79.0-92.2); MEAN PLT VOLUME 9.0 fl (9.4-12.4); MONOCYTE # 1.03 x10^3/uL (0.30-0.82); MONOCYTE % 6.7 % (5.3-12.2); RDW 29.1 % (12.6-16.6)
[2025-01-13] MEDS: ZINC SULFATE 220 MG CAPSULE (FP) PO SCH (08:59)
[2025-01-13] MEDS: TORSEMIDE 20 MG TABLET (FP) PO SCH (08:59)
[2025-01-13] MEDS: ASCORBIC ACID 500 MG TABLET (FP) PO SCH (08:59)
[2025-01-13 09:00] LABS: GLUCOSE,RANDOM 113 mg/dL (74-106)
[2025-01-13 09:01] LABS: CO2 25 mmol/L (21-32); TOT PROT 6.3 g/dl (6.4-8.2)
[2025-01-13 09:04] LABS: ALK PHOS 100 U/L (40-150)
[2025-01-13 09:06] LABS: SGOT/AST 41 U/L (5-34)
[2025-01-13 09:08] LABS: CREATININE 1.34 mg/dL (0.55-1.3); SGPT/ALT < 6 U/L (0-55)
[2025-01-13] MEDS: morphine CARPU-JECT 2 MG/1 ML DISP.SYRIN IVPUSH PRN (09:49)
[2025-01-13] MEDS ORDERED: APIXABAN 2.5 MG TABLET PO SCH (10:00)
[2025-01-13] MEDS: APIXABAN 2.5 MG TABLET PO SCH (11:53)
[2025-01-13] MEDS: MELATONIN 5 MG TABLETS PO SCH (21:33)
[2025-01-14 09:21] LABS: ABSOLUTE IMMATURE GRANULOCYTES 0.06 x10^3/uL (0.0-0.031); BASOPHILS # 0.10 x10^3/uL (0.01-0.08); EOSINOPHIL % 1.7 % (0.8-7.0); EOSINOPHILS # 0.22 x10^3/uL (0.04-0.54); MCHC 27.8 g/dl (32.3-36.5); MEAN CELL VOLUME 85.8 fl (79.0-92.2); MEAN PLT VOLUME 9.7 fl (9.4-12.4); MONOCYTE # 0.96 x10^3/uL (0.30-0.82); MONOCYTE % 7.5 % (5.3-12.2); RDW 29.0 % (12.6-16.6)
[2025-01-14 10:06] LABS: GLUCOSE,RANDOM 91 mg/dL (74-106); TOT PROT 5.9 g/dl (6.4-8.2)
[2025-01-14 10:07] LABS: CO2 18 mmol/L (21-32)
[2025-01-14 10:10] LABS: ALK PHOS 92 U/L (40-150)
[2025-01-14 10:12] LABS: CREATININE 1.46 mg/dL (0.55-1.3); SGOT/AST 37 U/L (5-34); SGPT/ALT < 6 U/L (0-55)
[2025-01-14] MEDS: SODIUM CHLORIDE 1,000 ML IV SCH (11:45)
[2025-01-15 00:25] VITALS: PULSE 69
[2025-01-15 06:37] LABS: ABSOLUTE IMMATURE GRANULOCYTES 0.04 x10^3/uL (0.0-0.031); BASOPHILS # 0.06 x10^3/uL (0.01-0.08); EOSINOPHIL % 2.0 % (0.8-7.0); EOSINOPHILS # 0.20 x10^3/uL (0.04-0.54); MCHC 28.5 g/dl (32.3-36.5); MEAN CELL VOLUME 86.0 fl (79.0-92.2); MEAN PLT VOLUME 9.7 fl (9.4-12.4); MONOCYTE # 0.72 x10^3/uL (0.30-0.82); MONOCYTE % 7.4 % (5.3-12.2); RDW 29.1 % (12.6-16.6)
[2025-01-15 07:12] LABS: GLUCOSE,RANDOM 94.0 mg/dL (74-106); TOT PROT 5.9 g/dl (6.4-8.2)
[2025-01-15 07:13] LABS: CO2 17.0 mmol/L (21-32)
[2025-01-15 07:24] LABS: ALK PHOS 90.0 U/L (40-150)
[2025-01-15 07:30] LABS: SGOT/AST 33.0 U/L (5-34); SGPT/ALT 6.0 U/L (0-55)
[2025-01-15 08:34] LABS: CREATININE 1.36 mg/dL (0.55-1.3)
[2025-01-15] MEDS: SENNOSIDES 8.6MG TABLET (FP) PO ONE (11:07)
[2025-01-15 16:40] VITALS: BP 109/65; RESP 18; TEMP 98
== END 2025-01-15 16:35 | DRG 853 ==
LOC: JER 12:56 → JERBED 18:17 → INTOOBSV 18:17 → J2W 21:16 → OBSVTOIN 12-29 01:25
PROVIDERS: ADMIT Internal Medicine Pulmonary Disease; ATTEND Family Medicine
PROC: 0F9430Z Drainage of Gallbladder with Drainage Device, Percutaneous Approach (ICD-10-PCS; 2024-12-30)
PROC: 0SRR0JZ Replacement of Right Hip Joint, Femoral Surface with Synthetic Substitute, Open Approach (ICD-10-PCS; principal; 2025-01-12 10:00)
DX: A41.9 Sepsis, unspecified organism (principal); G92.8 Other toxic encephalopathy; S72.001A Fracture of unspecified part of neck of right femur, initial encounter for closed fracture; I50.43 Acute on chronic combined systolic (congestive) and diastolic (congestive) heart failure; N17.9 Acute kidney failure, unspecified; E87.20 Acidosis, unspecified; I48.21 Permanent atrial fibrillation; I13.0 Hypertensive heart and chronic kidney disease with heart failure and stage 1 through stage 4 chronic kidney disease, or unspecified chronic kidney disease; I24.89 Other forms of acute ischemic heart disease; K81.0 Acute cholecystitis; E87.1 Hypo-osmolality and hyponatremia; E87.5 Hyperkalemia; G20.A1 Parkinson's disease without dyskinesia, without mention of fluctuations; F02.80 Dementia in other diseases classified elsewhere, unspecified severity, without behavioral disturbance, psychotic disturbance, mood disturbance, and anxiety; I87.2 Venous insufficiency (chronic) (peripheral); L89.326 Pressure-induced deep tissue damage of left buttock; L89.316 Pressure-induced deep tissue damage of right buttock; L89.156 Pressure-induced deep tissue damage of sacral region; E11.40 Type 2 diabetes mellitus with diabetic neuropathy, unspecified; J44.9 Chronic obstructive pulmonary disease, unspecified; E11.22 Type 2 diabetes mellitus with diabetic chronic kidney disease; N18.9 Chronic kidney disease, unspecified; E03.9 Hypothyroidism, unspecified; N40.0 Benign prostatic hyperplasia without lower urinary tract symptoms; I25.10 Atherosclerotic heart disease of native coronary artery without angina pectoris; I27.20 Pulmonary hypertension, unspecified; I48.0 Paroxysmal atrial fibrillation; D64.9 Anemia, unspecified; W19.XXXA Unspecified fall, initial encounter; Y93.89 Activity, other specified; Y92.89 Other specified places as the place of occurrence of the external cause; Y99.8 Other external cause status
CPT/HCPCS: 36415; 47490; 70450-TC; 71045-TC-FY; 71250-TC; 73502-TC-RT-FY; 74176-TC; 76604; 76705-TC; 80048; 80053; 80061; 81003; 82140; 82272; 82436; 82728; 82803; 82962; 83540; 83550; 83605; 83690; 83735; 83880; 83930; 83935; 84100; 84133; 84300; 84466; 84484; 85025; 85027; 85610; 85730; 86850; 86900; 86901; 86922; 87040; 87070; 87075; 87086; 87102; 87116; 87205; 87206; 87210; 87637-QW; 87899; 88305-TC; 88311-TC; 93005; 93010; 93306-TC; 93308; 93970; 94760; 97116-GP; 97162-GP; 99285-25; C1776; G0378; J1756

== ENCOUNTER 2025-03-02 11:01 | Inpatient (IN) | payer OTHER, BC ==
[2025-03-02] MEDS ORDERED: ACETAMINOPHEN INJECTION 100 ML ONE (12:12)
[2025-03-02] MEDS: ACETAMINOPHEN 1000 MG/100 ML BAG IVPB ONE (12:32)
[2025-03-02] MEDS: LACTATED RINGERS SOLUTION 1000 ML INFUS.BAG IV ONE (12:32)
[2025-03-02 12:36] LABS: ABSOLUTE IMMATURE GRANULOCYTES 0.03 x10^3/uL (0.0-0.031); BASOPHILS # 0.04 x10^3/uL (0.01-0.08); EOSINOPHIL % 1.7 % (0.8-7.0); EOSINOPHILS # 0.16 x10^3/uL (0.04-0.54); MCHC 31.3 g/dl (32.3-36.5); MEAN CELL VOLUME 91.5 fl (79.0-92.2); MEAN PLT VOLUME 9.9 fl (9.4-12.4); MONOCYTE # 0.55 x10^3/uL (0.30-0.82); MONOCYTE % 5.8 % (5.3-12.2); RDW 20.2 % (12.6-16.6)
[2025-03-02 12:40] LABS: BG HCT 41.0 % (35.4-49); VENOUS BASE EXCESS -3.2 mmol/L (-2-2); VENOUS O2 SATURATION 67.4 % (70-80); VENOUS PCO2 42.0 mmHg (38-52); VENOUS PH 7.344 (7.310-7.410)
[2025-03-02 12:44] LABS: INR 1.77 (0.83-1.09); PROTHROMBIN TIME (PATIENT) 19.5 SEC (9.7-13.0)
[2025-03-02 12:46] LABS: ACTIVATED PTT 34.5 SECONDS (25.2-36.5)
[2025-03-02 13:37] LABS: GLUCOSE,RANDOM 102 mg/dL (74-106)
[2025-03-02 13:38] LABS: CO2 19 mmol/L (21-32); TOT PROT 7.3 g/dl (6.4-8.2)
[2025-03-02 13:42] LABS: SGPT/ALT < 6 U/L (0-55)
[2025-03-02 13:43] LABS: CREATININE 1.60 mg/dL (0.55-1.3); SGOT/AST 38 U/L (5-34)
[2025-03-02 13:44] LABS: HCV DIAGNOSTIC IN-HOUSE W/RFLX NON-REACTIVE (NONREACTIVE); HIV INTERPRETATION NEGATIVE (NEGATIVE)
[2025-03-02 14:36] LABS: ALK PHOS 157 U/L (40-150)
[2025-03-02 16:34] LABS: URINE APPEARANCE CLEAR; URINE BILIRUBIN NEGATIVE (NEGATIVE); URINE COLOR YELLOW; URINE GLUCOSE (UA) NEGATIVE (NEGATIVE); URINE KETONE NEGATIVE (NEGATIVE); URINE LEUK ESTERASE NEGATIVE (NEGATIVE); URINE NITRITE NEGATIVE (NEGATIVE); URINE PROTEIN NEGATIVE (NEGATIVE); URINE UROBILINOGEN 0.2 mg/dL (0.2-1.0)
[2025-03-02] MEDS ORDERED: PIPERACILLIN/TAZOB 3.375 GM 3.375 GM/50 ML BAG IVPB ONE (17:18)
[2025-03-02] MEDS: PIPERACILLIN/TAZOB 3.375 GM 3.375 GM in DEXTROSE 5%-WATER - 50 ML IVPB ONE (17:21)
[2025-03-02] MEDS: ALLOPURINOL 100 MG TABLET (FP) PO SCH (22:05)
[2025-03-02] MEDS: CARBIDOPA/LEVODOPA 25/250 TABLET (FP) PO SCH (22:05)
[2025-03-02] MEDS: PRAMIPEXOLE DIHYDROCHLORIDE 0.25 MG TABLET PO SCH (22:05)
[2025-03-02] MEDS: ATORVASTATIN CA 40 MG TABLET (FP) PO SCH (22:05)
[2025-03-03] MEDS: AMPICILLIN NA/SULBACTAM NA 3 GM in SODIUM CHLORIDE 100 ML IVPB SCH (00:59)
[2025-03-03 07:42] LABS: ABSOLUTE IMMATURE GRANULOCYTES 0.03 x10^3/uL (0.0-0.031); BASOPHILS # 0.05 x10^3/uL (0.01-0.08); EOSINOPHIL % 3.3 % (0.8-7.0); EOSINOPHILS # 0.34 x10^3/uL (0.04-0.54); MCHC 30.3 g/dl (32.3-36.5); MEAN CELL VOLUME 91.8 fl (79.0-92.2); MEAN PLT VOLUME 9.8 fl (9.4-12.4); MONOCYTE # 0.57 x10^3/uL (0.30-0.82); MONOCYTE % 5.6 % (5.3-12.2); RDW 20.4 % (12.6-16.6)
[2025-03-03 07:50] LABS: GLUCOSE,RANDOM 85 mg/dL (74-106)
[2025-03-03 07:51] LABS: CO2 20 mmol/L (21-32); TOT PROT 6.9 g/dl (6.4-8.2)
[2025-03-03 07:56] LABS: CREATININE 1.71 mg/dL (0.55-1.3); SGOT/AST 32 U/L (5-34); SGPT/ALT < 6 U/L (0-55)
[2025-03-03] MEDS: TAMSULOSIN HCL 0.4 MG CAP PO SCH (08:00)
[2025-03-03 08:01] LABS: ALK PHOS 147 U/L (40-150)
[2025-03-03] MEDS: PHYTONADIONE 10 MG/1 ML AMP IVPB ONE (09:57)
[2025-03-03] MEDS: PANTOPRAZOLE SODIUM 40 MG VIAL IVPUSH SCH (09:58)
[2025-03-03] MEDS: FINASTERIDE 5 MG TABLET (FP) PO SCH (09:58)
[2025-03-03] MEDS: SERTRALINE HCL 50 MG TABLET (FP) PO SCH (09:58)
[2025-03-03] MEDS ORDERED: PANTOPRAZOLE 40 MG TABLET PO SCH (10:00)
[2025-03-03] MEDS: POLYETHYLENE GLYCOL (HEALTHYLAX) 3350 17 GM PACKET PO SCH (10:19)
[2025-03-03 11:45] LABS: IRON SERUM 43 ug/dL (50-175)
[2025-03-03] MEDS: IRON SUCROSE INJECTION 200 MG in SODIUM CHLORIDE 100 ML IVPB ONE (13:22)
[2025-03-03] MEDS: ACETAMINOPHEN 1000 MG/100 ML BAG IVPB ONE (21:57)
[2025-03-04] MEDS ORDERED: AMPICILLIN NA/SULBACTAM NA 3 GM VIAL ONE (02:09)
[2025-03-04 06:42] LABS: ABSOLUTE IMMATURE GRANULOCYTES 0.03 x10^3/uL (0.0-0.031); BASOPHILS # 0.03 x10^3/uL (0.01-0.08); EOSINOPHIL % 4.0 % (0.8-7.0); EOSINOPHILS # 0.35 x10^3/uL (0.04-0.54); MCHC 31.5 g/dl (32.3-36.5); MEAN CELL VOLUME 90.6 fl (79.0-92.2); MEAN PLT VOLUME 9.4 fl (9.4-12.4); MONOCYTE # 0.59 x10^3/uL (0.30-0.82); MONOCYTE % 6.8 % (5.3-12.2); RDW 19.7 % (12.6-16.6)
[2025-03-04 07:11] LABS: GLUCOSE,RANDOM 88 mg/dL (74-106); INR 1.5 (0.83-1.09); PROTHROMBIN TIME (PATIENT) 16.3 SEC (9.7-13.0); TOT PROT 6.6 g/dl (6.4-8.2)
[2025-03-04 07:12] LABS: CO2 21 mmol/L (21-32)
[2025-03-04 07:16] LABS: CREATININE 1.83 mg/dL (0.55-1.3); SGOT/AST 27 U/L (5-34); SGPT/ALT < 6 U/L (0-55)
[2025-03-04 07:25] LABS: ALK PHOS 137 U/L (40-150)
[2025-03-04] MEDS: IRON SUCROSE INJECTION 200 MG in SODIUM CHLORIDE 100 ML IVPB ONE (11:28)
[2025-03-04] MEDS: LACTATED RINGERS SOLUTION 1,000 ML/1,000 ML INFUS.BAG IV SCH ×2 (11:28→15:56)
[2025-03-04] MEDS: MELATONIN 5 MG TABLETS PO PRN (21:48)
[2025-03-04] MEDS: APIXABAN 2.5 MG TABLET PO SCH (21:48)
[2025-03-05 07:14] LABS: ABSOLUTE IMMATURE GRANULOCYTES 0.03 x10^3/uL (0.0-0.031); BASOPHILS # 0.03 x10^3/uL (0.01-0.08); EOSINOPHIL % 4.0 % (0.8-7.0); EOSINOPHILS # 0.33 x10^3/uL (0.04-0.54); MCHC 30.8 g/dl (32.3-36.5); MEAN CELL VOLUME 91.5 fl (79.0-92.2); MEAN PLT VOLUME 9.7 fl (9.4-12.4); MONOCYTE # 0.62 x10^3/uL (0.30-0.82); MONOCYTE % 7.4 % (5.3-12.2); RDW 20.2 % (12.6-16.6)
[2025-03-05 07:35] LABS: GLUCOSE,RANDOM 91 mg/dL (74-106); TOT PROT 6.4 g/dl (6.4-8.2)
[2025-03-05 07:36] LABS: CO2 20 mmol/L (21-32)
[2025-03-05 07:40] LABS: SGOT/AST 24 U/L (5-34); SGPT/ALT < 6 U/L (0-55)
[2025-03-05 07:41] LABS: CREATININE 1.93 mg/dL (0.55-1.3)
[2025-03-05 07:44] LABS: ALK PHOS 130 U/L (40-150)
[2025-03-05] MEDS: ACETAMINOPHEN 325 MG TABLET (FP) PO PRN (09:40)
[2025-03-06 13:10] VITALS: BMI 24.1
[2025-03-07] MEDS: ZINC SULFATE 220 MG CAPSULE (FP) PO SCH (09:48)
[2025-03-07] MEDS: ASCORBIC ACID 250 MG TABLET (FP) PO SCH (09:48)
[2025-03-07] MEDS: MULTIVITAMINS (DAILY MVI) TABLET (FP) PO SCH (09:48)
[2025-03-08 07:05] LABS: ABSOLUTE IMMATURE GRANULOCYTES 0.02 x10^3/uL (0.0-0.031); BASOPHILS # 0.04 x10^3/uL (0.01-0.08); EOSINOPHIL % 3.1 % (0.8-7.0); EOSINOPHILS # 0.27 x10^3/uL (0.04-0.54); MCHC 31.5 g/dl (32.3-36.5); MEAN CELL VOLUME 92.3 fl (79.0-92.2); MEAN PLT VOLUME 10.0 fl (9.4-12.4); MONOCYTE # 0.57 x10^3/uL (0.30-0.82); MONOCYTE % 6.5 % (5.3-12.2); RDW 19.2 % (12.6-16.6)
[2025-03-08 07:34] LABS: GLUCOSE,RANDOM 90.0 mg/dL (74-106); TOT PROT 6.4 g/dl (6.4-8.2)
[2025-03-08 07:35] LABS: CO2 23.0 mmol/L (21-32)
[2025-03-08 07:39] LABS: CREATININE 1.33 mg/dL (0.55-1.3); SGOT/AST 36.0 U/L (5-34); SGPT/ALT 7.0 U/L (0-55)
[2025-03-08 07:51] LABS: ALK PHOS 128.0 U/L (40-150)
[2025-03-09 09:52] VITALS: BP 104/71; PULSE 69; RESP 18; TEMP 97.5
== END 2025-03-09 11:45 | DRG 378 ==
LOC: JER 11:01 → JERBED 17:10 → J4W 20:47
PROVIDERS: ADMIT Internal Medicine; ATTEND Family Medicine
DX: K92.1 Melena (principal); I13.0 Hypertensive heart and chronic kidney disease with heart failure and stage 1 through stage 4 chronic kidney disease, or unspecified chronic kidney disease; I50.42 Chronic combined systolic (congestive) and diastolic (congestive) heart failure; I24.89 Other forms of acute ischemic heart disease; K35.80 Unspecified acute appendicitis; K57.91 Diverticulosis of intestine, part unspecified, without perforation or abscess with bleeding; I27.20 Pulmonary hypertension, unspecified; G20.A1 Parkinson's disease without dyskinesia, without mention of fluctuations; J44.9 Chronic obstructive pulmonary disease, unspecified; E03.9 Hypothyroidism, unspecified; E11.40 Type 2 diabetes mellitus with diabetic neuropathy, unspecified; E11.22 Type 2 diabetes mellitus with diabetic chronic kidney disease; D64.9 Anemia, unspecified; N18.9 Chronic kidney disease, unspecified; I25.10 Atherosclerotic heart disease of native coronary artery without angina pectoris; I48.0 Paroxysmal atrial fibrillation; E78.00 Pure hypercholesterolemia, unspecified; E78.5 Hyperlipidemia, unspecified; F41.9 Anxiety disorder, unspecified; N40.0 Benign prostatic hyperplasia without lower urinary tract symptoms
CPT/HCPCS: 36415; 71045-TC-FY; 74177-TC; 80053; 81003; 82728; 82803; 83540; 83550; 83605; 83735; 84100; 84484; 85025; 85610; 85730; 86803; 86850; 86900; 86901; 87040; 87086; 87389; 87637-QW; 93005; 93010; 97116-GP; 97162-GP; 99285-25; J1756; Q9967